=== PATIENT | male | born 1940 | race Caucasian/White ===

== ENCOUNTER 2025-03-12 08:18 | Outpatient (REF) | payer MEDICARE, OTHER, SELFPAY ==
--- NOTE | ~2025-03-12 | XR_ITS ---
EXAMINATION: XR SHOULDER, BILATERAL CLINICAL INFORMATION: M25.511 - Pain in right shoulder COMPARISON: None available. TECHNIQUE: AP and Y views of the bilateral shoulders. FINDINGS: RIGHT SHOULDER: Normal bone mineralization. No fracture, dislocation, or suspicious bone lesion. The glenohumeral demonstrates severe, end-stage arthritis with rerv-[id number] appearance, subchondral sclerosis and cystic changes, and undersurface spurring. The AC joint demonstrates moderate to severe arthrosis with predominant superior surface spurring. There is total loss of the subacromial space, with rjol-[id number] appearance of the humeral head on the acromion, indicating full thickness rotator cuff tearing. Remainder of the soft tissue and bony structures appear normal. LEFT SHOULDER Normal bone mineralization. No fracture, dislocation, or suspicious bone lesion. The glenohumeral demonstrates severe, end-stage arthritis with rqlg-[id number]-jlbd appearance, subchondral sclerosis and cystic changes, and undersurface spurring. The AC joint demonstrates moderate to severe arthrosis with predominant superior surface spurring. There is total loss of the subacromial space, with jikg-sg-tlno appearance of the humeral head on the acromion, indicating full thickness rotator cuff tearing. Partially imaged left-sided dual-lead pacer device. Partially imaged sternal wires. XR/XR Shoulder Johnie min 2V IMPRESSION: 1. Severe bilateral glenohumeral joint osteoarthrosis. [id number]-gh-[id number] appearance bilaterally. 2. Bilateral complete loss of the subacromial space indicating full thickness rotator cuff tearing. Electronically signed by: Mike Prieto MD 03/13/2025 11:22 AM EDT
--- OUTSIDE RECORDS SUMMARY | 2025-03-13 08:37 | XMS_ITS | Clinical Summary ---
Author Organization [address] [place] [address] [place] [phone] Phone Care Team Providers Care Mirror Department Supervisor Name Role Phone Jonathan Carter Primary Care Provider [phone] Allergies No known active allergies Medications amoxicillin [...] mg bid. Coronary artery disease invo lving [place] coronary artery of [place] heart without angina pectoris 06/28/2022 Assessment & [...] they were to faint. Secondary hypercoagulable state ([facility] V24) Assessment & Plan (01/15/2025 10:12 AM EST): Chronic heart failure with p reserved ejection fraction ([facility] V24, [facility] V28) 06/01/2022 Assessment & Plan [...] Description 02/13/2025 7:25 PM EDT Ancillary Procedure [facility] Cardiology [facility] - [address] [place] [address] 01/20/2025 8:20 AM EDT Ancillary Procedure [facility] Cardiology [facility] - [address] [place] [address] 01/15/2025 9:10 AM EST Office Visit [facility] Cardiology [facility] - [address] [place] [address] Stephanie Francois NP Chronic heart failure with preserved ejection fraction (CMS/HCC V24, CMS/HCC V28) (Primary Dx); Coronary artery disease involving mary's ig[place] coronary artery of mary's ig[place] heart without angina pectoris; Hyperlipidemia, unspecified hyperlipidemia [...] Description 12/02/2025 9:30 AM EST Ancillary Procedure [facility] - [facility] [address] [facility] [address] [place] [address] Health Maintenance Due Date Last [...] this topic Medical Devices Implanted Type Area Early Interventionist Device Identifier Shelf Expiration Date Model / Serial / Lot Lexi-Stjazmin 2272 Assurity Mri(Tm) [id number] Implanted: by Jj Dye MD (Quantity not on file) Cardiac Pacemaker Left: Chest [facility] 2271 ASSURITY MRI(TM) / [id number] / Abberica-Stjazmin Assurity Mri [id number] Implanted: (Quantity not on file) Cardiac Pacemaker [facility] ASSURITY MRI 2272 / [id number] / Procedures Procedure Name Priority Date/Time Associated [...] period is included. Date Time Interrogation Session [id number] CV DEVICE CHECK Type Interrogation Session Remote Scheduled CV DEVICE CHECK Implantable Pulse Generator Early Interventionist [place] CV DEVICE CHECK Implantable Pulse Generator Type IPG CV DEVICE CHECK Implantable Pulse Generator Model 2272 Assurity MRI(TM) CV DEVICE CHECK Implantable Pulse Generator Serial Number [id number] CV DEVICE CHECK Implantable Pulse Generator Implant Date 20220901 CV DEVICE CHECK Battery Remaining Percentage 78.00 CV DEVICE CHECK Battery Remaining Longevity 80.0 CV DEVICE CHECK Battery Voltage 3.010 CV D EVICE CHECK Battery ELECTROPHYSIOLOGY TECHNOLOGIST Trigger 2.600 CV DEVICE CHECK Battery Status Middle of Service CV DEVICE CHECK Joey Statistic RA Percent Paced 1.00 CV DEVICE CHECK Joey Statistic RV Percent Paced 92.00 CV DEVICE CHECK Atrial Tachy Statistic AT/AF Powell Percent 99.00 CV DEVICE CHECK Lead Channel [...] * Hemoglobin A1c (01/29/2025 8:07 AM EDT) [facility] Hemoglobin A1C 6.2 <6.5 % LAB CHEMISTRY METHOD 01/29/2025 12:39 PM EDT [facility] Mean Bld Glu Estim. 131 mg/dL LAB CHEMISTRY METHOD 01/29/2025 12:39 PM EDT [facility] Blood Venous blood specimen / Unknown Venipuncture / Unknown 01/29/2025 8:07 AM EDT 01/29/2025 8:07 AM EDT [facility] LAB BLOOD ORDERABLES Final Resul t [facility] [address] [place] [address], * (ABNORMAL) Basic metabolic panel (01/29/2025 8:07 AM EDT) Only the most recent of2 resultswithin the time period is included. [facility] Sodium 145 133 - 145 mmol/L LAB CHEMISTRY METHOD 01/29/2025 11:29 AM [facility] Potassium 4.2 3.5 - 5.5 mmol/L LAB CHEMISTRY METHOD 01/29/2025 11:29 AM [facility] Chloride 109 96 - 110 mmol/L LAB CHEMISTRY METHOD 01/29/2025 11:29 AM [facility] CO2 30 21 - 32 mmol/L LAB CHEMISTRY METHOD 01/29/2025 11:29 AM [facility] Anion Gap 6 3 - 11 LAB CHEMISTRY METHOD 01/29/2025 11:29 AM [facility] Glucose 103(H) 70 - 100 mg/dL LAB CHEMISTRY METHOD 01/29/2025 11:29 AM [facility] BUN 33(H) 5 - 25 mg/dL LAB CHEMISTRY METHOD 01/29/2025 11:29 AM EDT [facility] Creatinine 1.07 0.70 - 1.30 mg/dL LAB CHEMISTRY METHOD 01/29/2025 11:29 AM EDT [facility] eGFR 68 >=60 mL/min/1. 73m2 LAB CHEMISTRY METHOD 01/29/2025 11:29 AM EDT [facility] Comment:Calculation based on the??Chronic Kidney Disease Epidemiology Collaboration (CKD-EPI) equation refit??without adjustment for race. BUN/Creatinine Ratio 30.8 LAB CHEMISTRY METHOD 01/29/2025 11:29 AM EDT [facility] Calcium 9.0 8.5 - 10.5 mg/dL LAB CHEMISTRY METHOD 01/29/2025 11:29 AM EDT [facility] Blood Venous blood specimen / Unknown Venipuncture / Unknown 01/29/2025 8:07 AM EDT 01/29/2025 8:07 AM EDT [facility] LAB BLOOD ORDERABLES Final Resul t [facility] [address] [place] [address], [place] [phone] * (ABNORMAL) Lipid panel with reflex to direct LDL (01/16/2025 2:17 PM EST) Only the most recent of2 resultswithin the time period is included. Cholesterol 130 0 - 200 mg/dL LAB CHEMISTRY METHOD 01/16/2025 7:44 PM EST [facility] Triglycerides 174(H) 0 - 150 mg/dL LAB CHEMISTRY METHOD 01/16/2025 7:44 PM EST [facility] HDL 46 >=40 mg/dL LAB CHEMISTRY METHOD 01/16/2025 7:44 PM EST [facility] LDL Calculated 49 0 - 100 mg/dL LAB CHEMISTRY METHOD 01/16/2025 7:44 PM EST [facility] VLDL Cholesterol Pepe 34.8 mg/dL LAB CHEMISTRY METHOD 01/16/2025 7:44 PM EST [facility] Non HDL Chol. (LDL+VLDL) 84 <145 mg/dL LAB CHEMISTRY METHOD 01/16/2025 7:44 PM EST [facility] Chol/HDL Ratio 2.8 0.0 - 4.4 LAB CHEMISTRY METHOD 01/16/2025 7:44 PM EST [facility] Blood Venous blood specimen / Unknown Venipuncture / Unknown 01/16/2025 2:17 PM EST 01/16/2025 2:17 PM EST Wilver Cortez MD LAB BLOOD ORDERABLES Final Resu lt Performing Organization Address [facility]/ZIP Co de Phone Number [facility] [address] [place] [address], [place] [phone] * Magnesium (01/16/2025 2:17 PM EST) Magnesium 2.2 1.9 - 2.6 mg/dL LAB CHEMISTRY METHOD 01/16/2025 7:16 PM EST [facility] Blood Venous blood specimen / Unknown Venipuncture / Unknown 01/16/2025 2:17 PM EST 01/16/2025 2:17 PM EST Wilver Cortez MD LAB BLOOD ORDERABLES Final Resu lt Performing Organization Address City/[facility]/ZIP Co de Phone Number [facility] [address] [place] [address], [place] [phone] from Last 3 Months Insurance MEDICARE [employer] Care Teams Mirror Department Supervisor Relationship Specialty Start Date End Date Jonathan Carter DO [address] [place] [address] [place] [phone] PCP - General Internal Medicine 04/24/14
--- OUTSIDE RECORDS SUMMARY | 2025-03-13 08:37 | XMS_ITS | Patient Health Record ---
Author Organization [facility] Address [address] [facility] [place] [address] Care Team Providers Care Building And Construction Manager Name Role Phone Raul BROCK, Jonathan Primary Care Provider Karena Lazcano Beatriz Unavailable [phone] Allergies No Known Allergies Reason For Referral [...] skin (L97.511) Active confirmed Problem Atherosclerosis of [place] arteries of the extremities ([id number]) Atherosclerosis of [place] artery of both lower extremities, with unspecified presence of clinical manifestation (I70.203) Active confirmed Plan Of Treatment Pending Test Test Name Order Date X ray : Foot, right 3V 12/18/2022 Insurance Providers Payer Name Payer Address Payer Phone Subscriber Number Group Number Insured Name Patient Relationship to Insured Coverage Start Date Coverage End Date Medicare National Govt Sv[employer] [address] [place] [address] [id number] Mesfin Wright Self - patient is the insured [employer]) [address] [place] [address] [id number] Mesfin Wright Self - patient is the insured Medical (General) History Medical History History ICD Code Cancer covid-19 Heart disease High blood pressure Bone implants/screws Heart valve conditions/replacement Gout Surgical History Surgery Date(Month/Year) Heart Valve replacement cardiac pacemeker knee replacement
== END 2025-03-12 08:19 | disposition home or self-care (01) ==
LOC: HO.HOSX 08:18
PROVIDERS: Visit Provider Orthopaedic Surgery
DX: G56.03 Carpal tunnel syndrome, bilateral upper limbs (principal); M25.511 Pain in right shoulder; M25.512 Pain in left shoulder; R20.0 Anesthesia of skin
CPT/HCPCS: 73030; 99202

== ENCOUNTER 2025-03-12 13:35 | Outpatient (AMB) | payer MEDICARE, OTHER, SELFPAY ==
--- NOTE | 2025-03-12 13:40 | A.OFFVIS_ITS ---
Vital Signs 03/12/25 13:43 Height 6 ft Weight 225 lb BMI 30.5 Intake Visit Reasons: [employer]-B/L Shoulder Pain, Bilateral hand numbness Intake Note: Mesfin is an 84 year old male who presents with complaints of bilateral shoulder pains as well as numbness and tingling in both of his hands. The patient states that he has difficulty sleeping because of his hand numbness and tingling. He has had cortisone injections given into his shoulders which gave him temporary relief. His shoulder pains have gotten worse over the last few years. He has tried stretching exercises which gave him only mild relief. He has tried Tylenol which gives him minimal relief. He is not able to take anti- inflammatory medicines because he is on Eliquis. Allergies No Known Allergies Allergy (Verified 03/12/25 13:43) Medication List - Last Reconciled 03/12/25 by [place] MD amlodipine 5 mg PO DAILY apixaban (Eliquis) 5 mg PO BID bumetanide 1 mg PO DAILY evolocumab (Repatha SureClick) mg subcut gabapentin mg PO metoprolol succinate ER 50 mg PO DAILY omeprazole 20 mg PO DAILY Physical Exam Vital Signs: BMI result Body Mass Index 30.5 Const Other: Well-nourished well-developed very friendly male awake alert and oriented x3 in no acute distress Extrem Other: Bilateral hand examination shows positive Tinel's tests over his carpal tunnels, moderate thenar muscle wasting, decreased sensation to light touch along his median nerve distributions Bilateral shoulder examination shows limited active and passive range of motion, crepitus with range of motion, pain with range of motion, 3/5 strength with supraspinatus testing Results Reviewed Results Reviewed: X-rays of the patient's bilateral shoulder show rotator cuff tear arthropathy with bilateral high-riding humeral head Assessment & Plan Assessment & Plan (1) Bilateral carpal tunnel syndrome: Code(s): G56.03 - Carpal tunnel syndrome, bilateral upper limbs Category: Medical (2) Bilateral hand numbness: Code(s): R20.0 - Anesthesia of skin Plan Mr. Wright presents with bilateral shoulder pains and stiffness due to rotator cuff tear arthropathy. He also has numbness and tingling in both of his hands most likely due to carpal tunnel syndrome. Thus, I will send the patient for nerve conduction studies of his bilateral upper extremities. If he does have evidence of carpal tunnel syndrome I will refer him to our hand service. We also discuss the risks and benefits of reverse total shoulder replacement surgery. He wishes to think things over. He will contact me prior to his nerve conduction studies should his symptoms worsen in any way. Feel free to call me at any time should questions regarding his orthopedic management arise. Thank you very much for asking me to see this very friendly gentleman. I spent 22 minutes in reviewing the patient's records and imaging studies, seeing the patient and documenting in the medical record. Orders: Orders XR Shoulder Johnie min 2V 03/12/25 M25.511 - Pain in right shoulder, M25.512 - Pain in left shoulder NE electromyogram (EMG) Today G56.03 - Carpal tunnel syndrome, bilateral upper limbs NE nerve conduction velocity Today G56.03 - Carpal tunnel syndrome, bilateral upper limbs Coding Level of Care Code New Pt Level 3 (96565) Complex EM visit Add On G2211 Diagnoses Bilateral carpal tunnel syndrome G56.03 Bilateral hand numbness R20.0
[2025-03-12 13:43] VITALS: BMI 30.5
--- OUTSIDE RECORDS SUMMARY | 2025-03-12 15:54 | XMS_ITS | Patient Health Record ---
Author Organization [facility] Address [address] [place] [address] Care Team Providers Care [employer] Name Role Phone Raul BROCK, Jonathan Primary Care Provider Karena Lazcano Beatriz Unavailable [phone] Allergies No Known Allergies Reason For Referral No Information Medications Medication SIG (Take, Route, Frequency, Duration) Notes Start Date End Date Status Cephalexin 500 MG 1 capsule Orally sonja ry 12 hrs for 10 day(s) Active Praluent Active Bumetanide 0.5 MG 1 tablet Orally Once a day for 30 day(s) Active Eliquis 5 MG 1 tablet Orally Twic e a day for 30 day(s) Active Metoprolol Succinate 25 MG 1 capsule Orally Once a day for 30 day(s) Active Aspirin 81 MG 1 tablet Orally Once a day for 30 day(s) Not-Taking Social History Tobacco Use: Social History Observation Description Date Details (start date - stop date) Former Smoker NA - NA Tobacco Use/Smoking Question Answer Notes Are you a: former smoker Additional Findings: Tobacco Non-User Current no n-smoker Alcohol Screen Question Answer Notes Did you have a drink containing alcohol in the p ast year? No Points 0 Interpretation Negative Tobacco use other than smoking: Question Answer Notes Are you an other tobacco user? 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 confirmed Problem Atherosclerosis of [place] arteries of the extremities ([id number]) Atherosclerosis of [place] artery of both lower extremities, with unspecified presence of clinical manifestation (I70.203) Active confirmed Plan Of Treatment Pending Test Test Name Order Date X ray : Foot, right 3V 12/18/2022 Insurance Providers Payer Name Payer Address Payer Phone Subscriber Number Group Number Insured Name Patient Relationship to Insured Coverage Start Date Coverage End Date Medicare [employer] [address] [place] [address] [id number] Mesfin Wright Self - patient is the insured [employer] [address] [place] [address] [id number] Mesfin Wright Self - patient is the insured Medical (General) History Medical History History ICD Code Cancer covid-19 Heart disease High blood pressure Bone implants/screws Heart valve conditions/replacement Gout Surgical History Surgery Date(Month/Year) Heart Valve replacement cardiac pacemeker knee replacement
--- OUTSIDE RECORDS SUMMARY | 2025-03-12 15:54 | XMS_ITS | Clinical Summary ---
Author Organization [address] [place] [address] [place] [id number] Phone Care Team Providers Care Ball Mill Operator Name Role Phone Jonathan Carter Primary Care Provider [phone] Allergies No known active allergies Medications amoxicillin (AMOXIL) 500 mg tablet Take 4 pills one hour prior to procedure, as directed 5 Active gabapentin (NEURONTIN) 300 mg capsule Take 1 Capsule by mouth at bedtime. Active omeprazole (PRILOSEC) 20 mg tablet,delayed release (DR/EC) Take 1 Tablet by mouth daily. Active amLODIPine (NORVASC) 5 mg tablet TAKE 1 TABLET BY MOUTH EVERY DAY 90 tablet 2 5 Active evolocumab (Repatha SureClick) 140 mg/mL pen injector injection INJECT 1 SYRINGE INTO THE SKIN EVERY 14 DAYS. 6 mL 5 Active bumetanide (BUMEX) 1 mg tablet TAKE 1 TABLET BY MOUTH EVERY DAY 90 tablet 1 5 Active apixaban (Eliquis) 5 mg tablet TAKE 1 TABLET BY MOUTH TWICE A DAY 180 tablet 2 5 Active metoprolol succinate (TOPROL-XL) 50 mg 24 hr tablet TAKE 1 TABLET BY MOUTH EVERY DAY 90 tablet 3 5 Active metoprolol succinate (TOPROL-XL) 50 mg 24 hr tablet TAKE 1 TABLET BY MOUTH EVERY DAY 4 025 Discontinued Active Problems Problem Noted Date Diagnosed Date Status post aortic valve replacement 01/14/2025 Assessment & Plan (01/15/2025 10:12 AM EST): The patient's most recent echocardiogram was completed in 05/2024 showing a normally functioning bioprosthetic aortic valve with a mean gradient of 4 mmHg and no insufficiency. He offers no symptoms today to offer concern for worsening valvular dysfunction despite the fact that his valve was replaced in 2009. We will continue to monitor this with serial echocardiograms. Worrisome signs or symptoms for which he should return to care or seek urgent medical attention were reviewed and he verbalizes understanding. He is aware of the need for SBE prophylaxis 30 to 60 minutes prior to any dental procedures or cleanings; amoxicillin orders in place. Cardiac pacemaker in situ 01/14/2025 Assessment & Plan (01/15/2025 10:12 AM EST): Chronic diastolic congestive heart failure (CMS/HCC V24, CMS/HCC V28) 08/09/2023 Complete heart block (CMS/HCC V24, CMS/HCC V28) 08/09/2023 Overview (09/24/2024): Last Assessment & Plan: He is followed remotely every 3 months via our device clinic and annually in office. He is up to date with follow up in device clinic with normal device function. Assessment & Plan (01/15/2025 10:12 AM EST): Now status post pacemaker; normal device function on most recent device check. Continue with in office and remote device checks as per device clinic protocol. ACS (acute coronary syndrome) (CMS/HCC V24, CMS/ HCC V28) 08/06/2023 Chest pain 08/06/2023 Heart block 08/06/2023 Pneumonia 08/06/2023 SOB (shortness of breath) 08/06/2023 Atrial flutter (CMS/HCC V24, CMS/HCC V28) 2022 Overview (09/24/2024): Last Assessment & Plan: Rate controlled with pacemaker. Appropriately anticoagulated with Eliquis 5 mg bid. Coronary artery disease invo lving tangirnaq coronary artery of tangirnaq heart without angina pectoris 06/28/2022 Assessment & Plan (01/15/2025 10:12 AM EST): As above, the patient remains active on a regular basis and offers no symptoms concerning for underlying ischemia. We will not make any changes to his cardioprotective medical therapy; continue metoprolol, and Repatha in addition to amlodipine as an antianginal. He is not on daily aspirin given his concurrent use of Eliquis secondary to his atrial fibrillation. The patient was advised to seek emergent medical attention by calling 911 if they were to develop severe dyspnea, chest pain that did not resolve with rest, or if they were to faint. Secondary hypercoagulable state ([facility] V24) Assessment & Plan (01/15/2025 10:12 AM EST): Chronic heart failure with p reserved ejection fraction ([facility] V24, [facility] V28) 06/01/2022 Assessment & Plan (01/15/2025 10:12 AM EST): The patient remains active on a regular basis no exertional symptoms and no recent weight gain; he states that his chronic peripheral edema is at baseline if not improved from previous. He appears relatively euvolemic on exam aside from this edema and we will continue to wear compression stockings daily. We will not make any changes to his medications today; patient continue with beta-blockade and Bumex without change. We will update blood work; he already has orders in place for a BMP and magnesium level which were not completed when he had his recent lipid panel drawn-lab slips were provided to them today. We discussed risk reduction through lifestyle modifications including healthy diet, routine exercise, and weight management. We reviewed heart failure management including low-sodium diet, symptom surveillance, daily weights, and medication compliance. I've asked the patient to call if they develop worsening symptoms of heart failure such as increased shortness of breath, new or worsening cough, increased swelling in the legs or ankles, or weight gain of more than 2 pounds in one day or 4 pounds in one week. Aortic stenosis 12/07/2020 Overview (09/24/2024): Last Assessment & Plan: By exam his aortic valve is functioning normally. He did have an echocardiogram in May 2022. That time the valve is well-seated and functioning normally with trace aortic regurgitation. Plan for repeat surveillance echo summer 2023. Assessment & Plan (01/15/2025 10:12 AM EST): Atrial fibrillation (CMS/HCC V24, CMS/HCC V28) 0 12/07/2020 Overview (09/24/2024): Last Assessment & Plan: Patient is in atrial fibrillation. At this time he is anticoagulated with Eliquis. Given his weight and his last serum creatinine he is on the correct dose. Assessment & Plan (01/15/2025 10:12 AM EST): Rate appears well-controlled on metoprolol and he remains anticoagulated on Eliquis 5 mg twice daily. We discussed the risks and benefits of continuing with anticoagulation and he wishes to continue with current plan; we had a long discussion regarding this today as he is also inquiring about a possible Watchman but does not have any significant indication for this at this time. He is on the appropriate dose of Eliquis for his age of greater than 80 years, weight of greater than 60 kg, and most recent creatinine of less than 1.5. We are updating a metabolic panel today and we will readdress this should his creatinine result at 1.5 or greater. Edema 12/07/2020 Overview (09/24/2024): Last Assessment & Plan: He has worsening lower extremity edema. We will update echocardiogram. I am going to change his hydrochlorothiazide to furosemide to see if this helps with his edema. We will check a repeat basic metabolic panel and magnesium level in 5 days. Essential hypertension 12/07/2020 Overview (09/24/2024): Last Assessment & Plan: Blood pressure was slightly elevated on arrival to the office today but improved after rest. Continue amlodipine and Metoprolol along with diuretic. Continue to monitor. Assessment & Plan (01/15/2025 10:12 AM EST): Blood pressure is favorable in office today. We will not make any changes to his antihypertensive regimen; continue amlodipine, metoprolol, and bumetanide. We are updating a BMP and mag level; these orders are already in place as above. Hyperlipidemia 12/07/2020 Overview (09/24/2024): Last Assessment & Plan: Last lipid panel from May 2021. Total cholesterol 164, HDL 66, LDL 73. Continue statin therapy. Followed by PCP. Assessment & Plan (01/15/2025 10:12 AM EST): The patient's most recent lipid panel was completed on 01/06/2024 showing an LDL of 50; LDL goal for this patient who has a history of coronary artery disease is less than 70. Continue Repatha. Sick sinus syndrome (CMS/HCC V24, CMS/HCC V28) 0 12/07/2020 Overview (09/24/2024): Last Assessment & Plan: Recent replacement of his battery and the pacemaker is functioning normally.He is pacemaker dependent. Encounters Date Type Department Care Team Description 02/13/2025 7:25 PM EDT Ancillary Procedure [facility] Cardiology [facility] [address] [place] [address] 01/20/2025 8:20 AM EDT Ancillary Procedure [facility] Card[facility] [address] [place] [address] 01/15/2025 9:10 AM EST Office Visit [facility] - [address] [place] [address] Stephanie Francois NP Chronic heart failure with preserved ejection fraction (CMS/HCC V24, CMS/HCC V28) (Primary Dx); Coronary artery disease involving tangirnaq coronary artery of tangirnaq heart without angina pectoris; Hyperlipidemia, unspecified hyperlipidemia type; Essential hypertension; Status post aortic valve replacement; Nonrheumatic aortic valve stenosis; Longstanding persistent atrial fibrillation (CMS/HCC V24, CMS/HCC V28); Secondary hypercoagulable state (CMS/HCC V24); Complete heart block (CMS/HCC V24, CMS/HCC V28); Cardiac pacemaker in situ from Last 3 Months Surgical History Surgery Date Site/Laterality Comments AORTIC VALVE REPLACEMENT PROCEDURE: HISTORICAL AORTIC VALVE REPL; COMMENT: Bioprosthetic arctic valve repair Medical History Medical History Date Comments Essential hypertension DX:Essent ial hypertension Hyperlipidemia DX:Hyperlipidemi a SOB (shortness of breath) DX:SOB (shortness of breath) Hypoxia DX:Hypoxia Elevated LFTs DX:Elevated LFTs Generalized weakness DX:Generali zed weakness Bilateral lower extremity edema DX:Bilateral lower extremity edema Upper GI bleeding DX:Upper GI bl eeding; COMMENT: secondary to duodenal ulcers Acute blood loss anemia DX:Acute blood loss anemia HTN (hypertension) DX:HTN (hyper tension) Family History Medical History Relation Name Comments Heart attack Other Relation Name Status Comments Other Uncle Alive Social History Tobacco Use Types Packs/Day Years Used Date Smoking Tobacco: Former Smokeless Tobacco: Never Alcohol Use Standard Drinks/Week Comments Yes 0 (1 standard drink = 0.6 oz pur e alcohol) Sex and Gender Information Value Date Recorded Sex Assigned at Not on file Legal Sex Male 5:48 AM EST Gender Identity Not on file Sexual Orientation Not on file Obstetrics History Last Filed Vital Signs Vital Sign Reading Time Taken Comments Blood Pressure 121/70 01/15/2025 9:04 AM EST Pulse 61 01/15/2025 9:04 AM EST Temperature - - Respiratory Rate - - Oxygen Saturation 95% 01/15/2025 9:04 AM EST Inhaled Oxygen Concentration - - Weight 99.8 kg (220 lb) 01/15/2025 9:04 AM EST Height 182.9 cm (6') 01/15/2025 9:04 AM EST Body Mass Index 29.84 01/15/2025 9:04 AM EST Plan of Treatment Upcoming Encounters Date Type Department Care Team (Late st Contact Info) Description 12/02/2025 9:30 AM EST Ancillary Procedure [facility] [address] [facility] [address] [place] [address] Health Maintenance Due Date Last Done Comments DTaP,Tdap,and Td Vaccines (1 - Tdap) 1959 Pneumococcal Vaccine: 50+ Years (1 of 2 - PCV) 1959 Zoster Vaccines (1 of 2) 1988 Depression Screening 10/21/2022 Falls Risk Assessment 10/21/2022 Medicare Annual Wellness Visit 10/21/2022 Social Influencers of Health Screening 10/21/2022 COVID-19 Vaccine ( season) 2025 07/22/2024, 08/15/2023, 03/27/2023, Additional history exists Hypertension/CHF/CAD Annual BMP Blood Test 01/29/2026 01/29/2025, 01/16/2025, 08/28/2022, Additional history exists Cholesterol Screening (Lipid Panel) 01/16/2030 01/16/2025, 01/07/2025, 08/28/2022 RSV Immunization Adult Patients Completed 10/30/2023 Influenza Vaccine Completed 08/02/2024, , 08/17/2022 HIB Vaccines Aged Out No longer eligi ble based on patient's age to complete this topic HPV Vaccines Aged Out No longer eligi ble based on patient's age to complete this topic Hepatitis A Vaccines Aged Out No long er eligible based on patient's age to complete this topic Hepatitis B Vaccines Aged Out No long er eligible based on patient's age to complete this topic IPV Vaccines Aged Out No longer eligi ble based on patient's age to complete this topic MMR Vaccines Aged Out No longer eligi ble based on patient's age to complete this topic Meningococcal ACWY Vaccine Aged Out N o longer eligible based on patient's age to complete this topic Meningococcal B Vaccine Aged Out No l onger eligible based on patient's age to complete this topic RSV Immunization Patients Under 20 months Aged Out No longer eligible based on patient's age to complete this topic Varicella Vaccines Aged Out No longer eligible based on patient's age to complete this topic Medical Devices Implanted Type Area Afterschool Device Identifier Shelf Expiration Date Model / Serial / Lot Lexi-Stjazmin 2272 Assurity Mri(Tm) [id number] Implanted: by Jj Dye MD (Quantity not on file) Cardiac Pacemaker Left: Chest [facility] 2271 ASSURITY MRI(TM) / [id number] / Abberica-Stjazmin Assurity Mri [id number] Implanted: (Quantity not on file) Cardiac Pacemaker [facility] ASS[employer] MRI 2272 / [id number] / Procedures Procedure Name Priority Date/Time Associated Diagnosis Comments CARDIAC DEVICE CHECK- REMOTE- MURJ Routine 02/13/2025 7:20 PM EDT HEMOGLOBIN A1C Routine 01/29/2025 8:07 AM EDT HTN (hypertension) IGT (impaired glucose tolerance) BASIC METABOLIC PANEL Routine 01/29/2025 8:07 AM EDT HTN (hypertension) IGT (impaired glucose tolerance) CARDIAC DEVICE CHECK- REMOTE- MURJ Routine 01/20/2025 8:17 AM EDT LIPID PANEL WITH REFLEX TO DIRECT LDL Routine 01/16/2025 2:17 PM EST Hyperlipidemia, unspecified hyperlipidemia type MAGNESIUM Routine 01/16/2025 2:17 PM EST Atrial fibrillation, unspecified type (CMS/HCC V24, CMS/HCC V28) BASIC METABOLIC PANEL Routine 01/16/2025 2:17 PM EST Atrial fibrillation, unspecified type (CMS/HCC V24, CMS/HCC V28) LIPID PANEL WITH REFLEX TO DIRECT LDL Routine 01/07/2025 8:31 AM EST Hyperlipidemia, unspecified hyperlipidemia type from Last 3 Months Results * Cardiac device check - Remote- MURJ (02/13/2025 7:20 PM EDT) Only the most recent of2 resultswithin the time period is included. Date Time Interrogation Session [id number] CV DEVICE CHECK Type Interrogation Session Remote Scheduled CV DEVICE CHECK Implantable Pulse Generator [employer] CV DEVICE CHECK Implantable Pulse Generator Type IPG CV DEVICE CHECK Implantable Pulse Generator Model 2272 Assurity MRI(TM) CV DEVICE CHECK Implantable Pulse Generator Serial Number [id number] CV DEVICE CHECK Implantable Pulse Generator Implant Date [id number] CV DEVICE CHECK Battery Remaining Percentage 78.00 CV DEVICE CHECK Battery Remaining Longevity 80.0 CV DEVICE CHECK Battery Voltage 3.010 CV D EVICE CHECK Battery FOOD SERVICE AIDE Trigger 2.600 CV DEVICE CHECK Battery Status Middle of Service CV DEVICE CHECK Joey Statistic RA Percent Paced 1.00 CV DEVICE CHECK Joey Statistic RV Percent Paced 92.00 CV DEVICE CHECK Atrial Tachy Statistic AT/AF [place] Percent 99.00 CV DEVICE CHECK Lead Channel Sensing Intrinsic Amplitude 0.500 CV DEVICE CHECK Lead Channel Setting Sensing Sensitivity 0.50 CV DEVICE CHECK Lead Channel Impedance Value 410 CV DEVICE CHECK Lead Channel Setting Pacing Amplitude 2.500 CV DEVICE CHECK Lead Channel Setting Pacing Pulse Width 1.0 CV DEVICE CHECK Lead Channel Sensing Intrinsic Amplitude 12.000 CV DEVICE CHECK Lead Channel Setting Sensing Sensitivity 2.00 CV DEVICE CHECK Lead Channel Impedance Value 380 CV DEVICE CHECK Lead Channel Pacing Threshold Amplitude 1.250 CV DEVICE CHECK Lead Channel Pacing Threshold Pulse Width 0.5 CV DEVICE CHECK Lead Channel RV Pacing Threshold Date 2024-07-24 CV DEVICE CHECK Lead Channel Setting Pacing Amplitude 1.500 CV DEVICE CHECK Lead Channel Setting Pacing Pulse Width 0.5 CV DEVICE CHECK Joey Setting Mode (NBG Code) DDD CV DEVICE CHECK Joey Setting Lower Rate Limit 60 CV DEVICE CHECK Joey Setting AT Mode Switch Rate 180 CV DEVICE CHECK Joey Setting Maximum Tracking Rate 130 CV DEVICE CHECK Joey Setting Maximum Sensor Rate 130 CV DEVICE CHECK Joey Setting PAV Delay 200 CV DEVICE CHECK Joey Setting HUMPHREY Delay 180 CV DEVICE CHECK Date of Service 2024-08-05 CV DEVICE CHECK Anatomical Region Laterality Modality Device Interroga tion 07/24/2024 2:00 AM EDT Impressions 08/05/2024 12:46 PM EDT Normal Remote: With Events * Normal Device Function * Events or Alerts: Persistent AF / Meds include / Eliquis / Rate Controlled * Battery: Battery is at 78%, 6.67 yrs * Sensing, impedance and thresholds reviewed * Programmed parameters reviewed * Presenting rhythm reviewed * Heart Rate Histograms reviewed Narrative Procedure Note Jj Dye MD - 02/13/2025 IMPRESSION: Normal Remote: With Events * Normal Device Function * Events or Alerts: Persistent AF / Meds include / Eliquis / RateControlled * Battery: Battery is at 78%, 6.67 yrs * Sensing, impedance and thresholds reviewed * Programmed parameters reviewed * Presenting rhythm reviewed * Heart Rate Histograms reviewed Jj Dye MD CV IMPLANTABLE CARDIAC DEVICE PROCEDURES Final Result * Hemoglobin A1c (01/29/2025 8:07 AM EDT) [facility] Hemoglobin A1C 6.2 <6.5 % LAB CHEMISTRY METHOD 01/29/2025 12:39 PM EDT [facility] Mean Bld Glu Estim. 131 mg/dL LAB CHEMISTRY METHOD 01/29/2025 12:39 PM EDT [facility] Blood Venous blood specimen / Unknown Venipuncture / Unknown 01/29/2025 8:07 AM EDT 01/29/2025 8:07 AM EDT [facility] LAB BLOOD ORDERABLES Final Resul t [facility] [address] [place] [address], * (ABNORMAL) Basic metabolic panel (01/29/2025 8:07 AM EDT) Only the most recent of2 resultswithin the time period is included. [facility] Sodium 145 133 - 145 mmol/L LAB CHEMISTRY METHOD 01/29/2025 11:29 AM [facility] Potassium 4.2 3.5 - 5.5 mmol/L LAB CHEMISTRY METHOD 01/29/2025 11:29 AM [facility] Chloride 109 96 - 110 mmol/L LAB CHEMISTRY METHOD 01/29/2025 11:29 AM [facility] CO2 30 21 - 32 mmol/L LAB CHEMISTRY METHOD 01/29/2025 11:29 AM [facility] Anion Gap 6 3 - 11 LAB CHEMISTRY METHOD 01/29/2025 11:29 AM [facility] Glucose 103(H) 70 - 100 mg/dL LAB CHEMISTRY METHOD 01/29/2025 11:29 AM [facility] BUN 33(H) 5 - 25 mg/dL LAB CHEMISTRY METHOD 01/29/2025 11:29 AM EDT [facility] Creatinine 1.07 0.70 - 1.30 mg/dL LAB CHEMISTRY METHOD 01/29/2025 11:29 AM EDT [facility] eGFR 68 >=60 mL/min/1. 73m2 LAB CHEMISTRY METHOD 01/29/2025 11:29 AM EDT [facility] Comment:Calculation based on the??Chronic Kidney Disease Epidemiology Collaboration (CKD-EPI) equation refit??without adjustment for race. BUN/Creatinine Ratio 30.8 LAB CHEMISTRY METHOD 01/29/2025 11:29 AM EDT [facility] Calcium 9.0 8.5 - 10.5 mg/dL LAB CHEMISTRY METHOD 01/29/2025 11:29 AM EDT [facility] Blood Venous blood specimen / Unknown Venipuncture / Unknown 01/29/2025 8:07 AM EDT 01/29/2025 8:07 AM EDT [facility] LAB BLOOD ORDERABLES Final Resul t [facility] [address] [place] [address], [place] [phone] * (ABNORMAL) Lipid panel with reflex to direct LDL (01/16/2025 2:17 PM EST) Only the most recent of2 resultswithin the time period is included. Cholesterol 130 0 - 200 mg/dL LAB CHEMISTRY METHOD 01/16/2025 7:44 PM EST [facility] Triglycerides 174(H) 0 - 150 mg/dL LAB CHEMISTRY METHOD 01/16/2025 7:44 PM EST [facility] HDL 46 >=40 mg/dL LAB CHEMISTRY METHOD 01/16/2025 7:44 PM EST [facility] LDL Calculated 49 0 - 100 mg/dL LAB CHEMISTRY METHOD 01/16/2025 7:44 PM EST [facility] VLDL Cholesterol Pepe 34.8 mg/dL LAB CHEMISTRY METHOD 01/16/2025 7:44 PM EST [facility] Non HDL Chol. (LDL+VLDL) 84 <145 mg/dL LAB CHEMISTRY METHOD 01/16/2025 7:44 PM EST [facility] Chol/HDL Ratio 2.8 0.0 - 4.4 LAB CHEMISTRY METHOD 01/16/2025 7:44 PM EST [facility] Blood Venous blood specimen / Unknown Venipuncture / Unknown 01/16/2025 2:17 PM EST 01/16/2025 2:17 PM EST Wilver Cortez MD LAB BLOOD ORDERABLES Final Resu lt Performing Organization Address [facility]/ZIP Co de Phone Number [facility] [address] [place] [address], [place] [phone] * Magnesium (01/16/2025 2:17 PM EST) Magnesium 2.2 1.9 - 2.6 mg/dL LAB CHEMISTRY METHOD 01/16/2025 7:16 PM EST [facility] Blood Venous blood specimen / Unknown Venipuncture / Unknown 01/16/2025 2:17 PM EST 01/16/2025 2:17 PM EST Wilver Cortez MD LAB BLOOD ORDERABLES Final Resu lt Performing Organization Address City/[facility]/ZIP Co de Phone Number [facility] [address] [place] [address], [place] [phone] from Last 3 Months Insurance MEDICARE [employer] Care Teams Ball Mill Operator Relationship Specialty Start Date End Date Jonathan Carter DO [address] [place] [address] [place] [phone] PCP - General Internal Medicine 04/24/14
== END 2025-03-12 14:02 | disposition home or self-care (01) ==
LOC: HO.HOS 13:35
PROVIDERS: PCP Internal Medicine; Visit Provider Orthopaedic Surgery
DX: G56.03 Carpal tunnel syndrome, bilateral upper limbs (principal); R20.0 Anesthesia of skin
CPT/HCPCS: 99203; G2211

== ENCOUNTER → 2025-03-12 13:36 | Outpatient (BNV) | payer MEDICARE, OTHER, SELFPAY | PROVIDERS: Visit Provider Radiology Diagnostic Radiology | DX: M19.011 Primary osteoarthritis, right shoulder (principal); M19.012 Primary osteoarthritis, left shoulder | CPT/HCPCS: 73030 ==

== ENCOUNTER 2025-05-19 08:22 | Outpatient (REF) | payer MEDICARE, OTHER, SELFPAY ==
--- OUTSIDE RECORDS SUMMARY | 2025-05-19 08:25 | XMS_ITS | Clinical Summary ---
Author Organization [address] [place] [address] [place] [phone] Phone Care Team Providers Care Laborer Tin Can Name Role Phone Jonathan Carter Primary Care Provider [phone] Allergies No known active allergies Medications amoxicillin (AMOXIL) 500 mg tablet Take 4 pills one hour prior to procedure, as directed 04/30/2015 Active gabapentin (NEURONTIN) 300 mg capsule Take 1 Capsule by mouth at bedtime. Active omeprazole (PRILOSEC) 20 mg tablet,delayed release (DR/EC) Take 1 Tablet by mouth daily. Active amLODIPine (NORVASC) 5 mg tablet TAKE 1 TABLET BY MOUTH EVERY DAY 90 tablet 2 11/13/2024 Active bumetanide (BUMEX) 1 mg tablet TAKE 1 TABLET BY MOUTH EVERY DAY 90 tablet 1 01/07/2025 Active apixaban (Eliquis) 5 mg tablet TAKE 1 TABLET BY MOUTH TWICE A DAY 180 tablet 2 01/26/2025 Active metoprolol succinate (TOPROL-XL) 50 mg 24 hr tablet TAKE 1 TABLET BY MOUTH EVERY DAY 90 tablet 3 02/25/2025 Active evolocumab (Repatha SureClick) 140 mg/mL pen injector injection INJECT 1 SYRINGE INTO THE SKIN EVERY 14 DAYS. 6 mL 2 03/17/2025 Active Active Problems Problem Noted Date Diagnosed Date [...] AM EST): Chronic diastolic congestive heart failure (CMS/[facility] V24, CMS/HCC V28) 08/09/2023 Complete heart block [...] mg bid. Coronary artery disease invo lving [place] coronary artery of [place] heart without angina pectoris 06/28/2022 Assessment & [...] they were to faint. Secondary hypercoagulable state ([facility] V24) Assessment & Plan (01/15/2025 10:12 AM EST): Chronic heart failure with p reserved ejection fraction ([facility] V24, [facility] V28) 06/01/2022 Assessment & Plan (01/15/2025 10:12 [...] Encounters Date Type Department Care Team Description 05/04/2025 8:30 AM EDT Ancillary Procedure [facility] Cardiology [facility] - [address] [place] [address] Encounter for adjustment or management of cardiac device 04/28/2025 11:20 AM EDT Ancillary Procedure [facility] Cardiology [facility] - [address] [place] [address] 04/28/2025 Telephone [facility] Cardiology [facility] - [address] [place] [address] Litzy Dwyer NP 03/19/2025 Telephone [facility] Cardiology [facility] - [address] [place] [address] Wilver Cortez MD Med Refill; Prior Auth (Repatha SureClick 140MG/ML auto-injectors) from Last 3 Months Surgical History Surgery [...] Description 12/02/2025 9:30 AM EST Ancillary Procedure [facility] - [facility] [address] [facility] [address] [place] [address] Health Maintenance Due Date Last Done Comments DTaP,Tdap,and Td Vaccines (1 - Tdap) 1959 Pneumococcal Vaccine: 50+ Years (1 of 2 - PCV) 1959 Zoster Vaccines (1 of 2) 1988 Depression Screening 10/21/2022 Falls Risk Assessment 10/21/2022 Medicare Annual Wellness Visit 10/21/2022 Social Influencers of Health Screening 10/21/2022 COVID-19 Vaccine ( season) 2025 07/22/2024, 08/15/2023, 03/27/2023, Additional history exists Influenza Vaccine (#1) 2025 , 01/09/2024, 08/17/2022 Hypertension/CHF/CAD Annual BMP Blood Test 01/29/2026 01/29/2025, 01/16/2025, 08/28/2022, Additional history exists Cholesterol Screening (Lipid Panel) 01/16/2030 01/16/2025, 01/07/2025, 08/28/2022 RSV Immunization Adult Patients Completed 10/30/2023 HIB Vaccines Aged Out No longer eligi [...] this topic Medical Devices Implanted Type Area Awnings Mechanic Device Identifier Shelf Expiration Date Model / Serial / Lot Dianerica-Stju 227 Assurity Mri(Tm) [id number] Implanted: by Jj Dye MD (Quantity not on file) Cardiac Pacemaker Left: Chest [facility] 2272 ASSURITY MRI(TM) / [id number] / Abbt-Stju Assurity Mri [id number] Implanted: (Quantity not on file) Cardiac Pacemaker [facility] ASSURITY MRI 2272 / [id number] / Procedures Procedure Name Priority Date/Time Associated Diagnosis Comments CARDIAC DEVICE CHECK- IN CLINIC- MURJ Routine 05/04/2025 9:28 AM EDT Encounter for adjustment or management of cardiac device CARDIAC DEVICE CHECK- REMOTE- MURJ Routine 04/28/2025 11:19 AM EDT BASIC METABOLIC PANEL Routine 01/29/2025 8:07 AM EDT HTN (hypertension) IGT (impaired glucose tolerance) LIPID PANEL WITH REFLEX TO DIRECT LDL Routine 01/16/2025 2:17 PM EST Hyperlipidemia, unspecified hyperlipidemia type from Last 3 Months or Most Recently Relevant to Health Maintenance Results * CARDIAC DEVICE CHECK- IN CLINIC- MURJ (05/04/2025 9:28 AM EDT) Date Time Interrogation Session [id number] CV DEVICE CHECK Implantable Pulse Generator Awnings Mechanic [place] CV DEVICE CHECK Implantable Pulse Generator Type IPG CV DEVICE CHECK Implantable Pulse Generator Model Assurity MRI 2272 CV DEVICE CHECK Implantable Pulse Generator Serial Number [id number] CV DEVICE CHECK Implantable Pulse Generator Implant Date 20220901 CV DEVICE CHECK Battery Voltage 3.010 CV D EVICE CHECK Battery Status Middle of Service CV DEVICE CHECK Joey Statistic RA Percent Paced 17.00 CV DEVICE CHECK Joey Statistic RV Percent Paced 99.03 CV DEVICE CHECK Lead Channel Sensing Intrinsic Amplitude 1.000 CV DEVICE CHECK Lead Channel Impedance Value 375 CV DEVICE CHECK Lead Channel Pacing Threshold Pulse Width 1.0 CV DEVICE CHECK Lead Channel RA Pacing Threshold Date 2025-05-04 CV DEVICE CHECK Lead Channel Setting Pacing Amplitude 2.500 CV DEVICE CHECK Lead Channel Setting Pacing Pulse Width 1.0 CV DEVICE CHECK Lead Channel Sensing Intrinsic Amplitude 12.000 CV DEVICE CHECK Lead Channel Setting Sensing Sensitivity 2.00 CV DEVICE CHECK Lead Channel Impedance Value 375 CV DEVICE CHECK Lead Channel Pacing Threshold Amplitude 1.130 CV DEVICE CHECK Lead Channel Pacing Threshold Pulse Width 0.5 CV DEVICE CHECK Lead Channel RV Pacing Threshold Date 2025-05-04 CV DEVICE CHECK Lead Channel Setting Pacing Amplitude 1.380 CV DEVICE CHECK Lead Channel Setting Pacing [...] 180 CV DEVICE CHECK Date of Service 2025-10-17 CV DEVICE CHECK Anatomical Region Laterality Modality Device Interroga tion 05/04/2025 Impressions 05/11/2025 7:37 AM EDT Programming Evaluation Performed * Patient brought into device clinic today to change atrial sensitivity to AUTO to ensure appropriate AF burden. Narrative Procedure Note Jj Dye MD - 05/11/2025 IMPRESSION: Programming Evaluation Performed * Patient brought into device clinic today to change atrial sensitivityto AUTO to ensure appropriate AF burden. us Order Referral Cardiovascular CV IMPLANTABLE CAR DIAC DEVICE PROCEDURES Final Result * Cardiac device check - Remote- MURJ (04/28/2025 11:19 AM EDT) Date Time Interrogation Session [id number] CV DEVICE CHECK Type Interrogation Session Remote Scheduled CV DEVICE CHECK Implantable Pulse Generator Awnings Mechanic [place] CV DEVICE CHECK Implantable Pulse Generator Type IPG CV DEVICE CHECK Implantable Pulse Generator Model 2272 Assurity MRI(TM) CV DEVICE CHECK Implantable Pulse Generator Serial Number [id number] CV DEVICE CHECK Implantable Pulse Generator Implant Date 20220901 CV DEVICE CHECK Battery Remaining Percentage 70.00 CV DEVICE CHECK Battery Remaining Longevity 65.0 CV DEVICE CHECK Battery Voltage 3.010 CV D EVICE CHECK Battery GYMNASTIC COACH Trigger 2.600 CV DEVICE CHECK Battery Status Middle of Service CV DEVICE CHECK Joey Statistic RA Percent Paced 14.00 CV DEVICE CHECK Joey Statistic RV Percent Paced 92.00 CV DEVICE CHECK Atrial Tachy Statistic AT/AF Curlew Percent 27.00 CV DEVICE CHECK Lead Channel Sensing Intrinsic Amplitude 0.500 CV DEVICE CHECK Lead Channel Setting Sensing Sensitivity 0.50 CV DEVICE CHECK Lead Channel Impedance Value 350 CV DEVICE CHECK Lead Channel Setting Pacing Amplitude 2.500 CV DEVICE CHECK Lead Channel Setting Pacing Pulse Width 1.0 CV DEVICE CHECK Lead Channel Sensing Intrinsic Amplitude 12.000 CV DEVICE CHECK Lead Channel Setting Sensing Sensitivity 2.00 CV DEVICE CHECK Lead Channel Impedance Value 350 CV DEVICE CHECK Lead Channel Pacing Threshold Amplitude 1.500 CV DEVICE CHECK Lead Channel Pacing Threshold Pulse Width 0.5 CV DEVICE CHECK Lead Channel RV Pacing Threshold Date 2025-04-23 CV DEVICE CHECK Lead Channel Setting Pacing Amplitude 1.750 CV DEVICE CHECK Lead Channel Setting Pacing Pulse Width 0.5 CV DEVICE CHECK Joey Setting Mode (NBG Code) DDD CV DEVICE CHECK Joey Setting Lower Rate Limit 60 CV DEVICE CHECK Joey Setting AT Mode Switch Rate 180 CV DEVICE CHECK Joey Setting Maximum Tracking Rate 130 CV DEVICE CHECK Joey Setting Maximum Sensor Rate 130 CV DEVICE CHECK Ojey Setting PAV Delay 200 CV DEVICE CHECK Joey Setting HUMPHREY Delay 180 CV DEVICE CHECK Date of Service 2025-05-05 CV DEVICE CHECK Anatomical Region Laterality Modality Device Interroga tion 04/23/2025 3:56 AM EDT Impressions 04/28/2025 11:18 AM EDT Normal Remote: With Events * Not appropriaely mode switching (See presenting) Undersensing p-waves * Events or Alerts: AF / Prev Persistent/ Meds include Eliquis * Battery: Battery is at 70%, 5.42 yrs * Sensing, impedance and thresholds reviewed * Programmed parameters reviewed * Presenting rhythm reviewed * Heart Rate Histograms reviewed Narrative Procedure Note Litzy Dwyer NP - 04/28/2025 IMPRESSION: Normal Remote: With Events * Not appropriaely mode switching (See presenting) Undersensing p-waves * Events or Alerts: AF / Prev Persistent/ Meds include Eliquis * Battery: Battery is at 70%, 5.42 yrs * Sensing, impedance and thresholds reviewed * Programmed parameters reviewed * Presenting rhythm reviewed * Heart Rate Histograms reviewed Result [facility] Litzy Dwyer NP CV IMPLANTABLE CARDIAC DEVIC E PROCEDURES Final Result * (ABNORMAL) Basic metabolic panel (01/29/2025 8:07 AM EDT) Sodium 145 133 - 145 mmol/L LAB CHEMISTRY METHOD 01/29/2025 11:29 AM EDT [facility] Potassium 4.2 3.5 - 5.5 mmol/L LAB CHEMISTRY METHOD 01/29/2025 11:29 AM EDT [facility] Chloride 109 96 - 110 mmol/L LAB CHEMISTRY METHOD 01/29/2025 11:29 AM [facility] CO2 30 21 - 32 mmol/L LAB CHEMISTRY METHOD 01/29/2025 11:29 AM T [facility] Anion Gap 6 3 - 11 LAB CHEMISTRY METHOD 01/29/2025 11:29 AM [facility] Glucose 103(H) 70 - 100 mg/dL LAB CHEMISTRY METHOD 01/29/2025 11:29 AM [facility] BUN 33(H) 5 - 25 mg/dL LAB CHEMISTRY METHOD 01/29/2025 11:29 AM [facility] Creatinine 1.07 0.70 - 1.30 mg/dL LAB CHEMISTRY METHOD 01/29/2025 11:29 AM [facility] eGFR 68 >=60 mL/min/1. 73m2 LAB CHEMISTRY METHOD 01/29/2025 11:29 AM [facility] Comment:Calculation based on the Chronic Kidney Disease Epidemiology Collaboration (CKD-EPI) equation refit without adjustment for race. BUN/Creatinine Ratio 30.8 LAB CHEMISTRY METHOD 01/29/2025 11:29 AM [facility] Calcium 9.0 8.5 - 10.5 mg/dL LAB CHEMISTRY METHOD 01/29/2025 11:29 AM [facility] Blood Venous blood specimen / Unknown Venipuncture / Unknown 01/29/2025 8:07 AM EDT 01/29/2025 8:07 AM EDT [facility] LAB BLOOD ORDERABLES Final Resul t [facility] [address] [place] [address], * (ABNORMAL) Lipid panel with reflex to direct LDL (01/16/2025 2:17 PM EST) Cholesterol 130 0 - 200 mg/dL LAB CHEMISTRY METHOD 01/16/2025 7:44 PM EST [facility] Triglycerides 174(H) 0 - 150 mg/dL LAB CHEMISTRY METHOD 01/16/2025 7:44 PM EST [facility] HDL 46 >=40 mg/dL LAB CHEMISTRY METHOD 01/16/2025 7:[address] [facility] LDL Calculated 49 0 - 100 mg/dL LAB CHEMISTRY METHOD 01/16/2025 7:[address] [facility] VLDL Cholesterol Pepe 34.8 mg/dL LAB CHEMISTRY METHOD 01/16/2025 7:[address] [facility] Non HDL Chol. (LDL+VLDL) 84 <145 mg/dL LAB CHEMISTRY METHOD 01/16/2025 7:[address] [facility] Chol/HDL Ratio 2.8 0.0 - 4.4 LAB CHEMISTRY METHOD 01/16/2025 7:[address] [facility] Blood Venous blood specimen / Unknown Venipuncture / Unknown 01/16/2025 2:17 PM EST 01/16/2025 2:17 PM EST us Wilver Cortez MD LAB BLOOD ORDERABLES Final Resu lt [facility] [address] [place] [address], from Last 3 Months or Most Recently Relevant to Health Maintenance Insurance MEDICARE [facility] Care Teams Laborer Tin Can Relationship Specialty Start Date End Date Jonathan Carter DO [address] [place] [phone] PCP - General Internal Medicine 04/24/14
--- OUTSIDE RECORDS SUMMARY | 2025-05-19 08:25 | XMS_ITS | Patient Health Record ---
Author Organization [facility] Address [address] [facility] [place] [address] Care Team Providers Care Development And Planning Engineer Name Role Phone Raul BROCK, Jonathan Primary Care Provider Beatriz Esqueda Unavailable [phone] Allergies No Known Allergies Reason For Referral No Information Medications Medication SIG (Take, Route, Frequency, Duration) Notes Start Date End Date Status Cephalexin 500 MG 1 capsule Orally sonja ry 12 hrs; Duration: 10 day(s) Active Praluent Active Bumetanide 0.5 MG 1 tablet Orally Once a day; Duration: 30 day(s) Active Eliquis 5 MG 1 tablet Orally Twic e a day; Duration: 30 day(s) Active Metoprolol Succinate 25 MG 1 capsule Orally Once a day; Duration: 30 day(s) Active Aspirin 81 MG 1 tablet Orally Once a day; Duration: 30 day(s) Not-Henrry ing Social History Tobacco Use: Social History Observation [...] breakdown of skin (L97.511) Active confirmed Problem Bilateral atherosclerosis of arteries of lower limbs (disorder) ([id number] ) Atherosclerosis of [place] artery of both lower extremities, with unspecified presence of clinical manifestation (I70.203) Active confirmed Plan Of Treatment Pending Test Test Name Order Date X ray : Foot, right 3V 12/18/2022 Insurance Providers Payer Name Payer Address Payer Phone Subscriber Number Group Number Insured Name Patient Relationship to Insured Coverage Start Date Coverage End Date Medicare National Govt Svcs Inc [address] [place] [address] [id number] Mesfin Wright Self - patient is the insured [employer] [address] [place] [address] [id number] Mesfin Wright Self - patient is the insured Medical (General) History Medical History History ICD Code Cancer covid-19 Heart disease High blood pressure Bone implants/screws Heart valve conditions/replacement Gout Surgical History Surgery Date(Month/Year) Heart Valve replacement cardiac pacemeker knee replacement
--- NOTE | 2025-05-19 08:27 | EMG_ITS ---
Bilateral median and ulnar motor and sensory studies were performed. Bilateral radial sensory studies were performed and paraspinal muscles were tested with a needle. IMPRESSION: 1. 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 2. Mild bilateral ulnar neuropathy across cubital tunnel. Please see the attached neurophysiology data M MD VIRI Jamil/DAVID / [id number] MTDCrystal
== END 2025-05-19 08:23 | disposition home or self-care (01) ==
LOC: HO.NEURO 08:22
PROVIDERS: PCP Internal Medicine; Visit Provider Orthopaedic Surgery
DX: G56.03 Carpal tunnel syndrome, bilateral upper limbs (principal)
CPT/HCPCS: 95886; 95911

== ENCOUNTER → 2025-05-19 08:27 | Outpatient (BNV) | payer MEDICARE, OTHER, SELFPAY | PROVIDERS: PCP Internal Medicine; Visit Provider Psychiatry & Neurology Neurology | DX: G56.03 Carpal tunnel syndrome, bilateral upper limbs (principal); G62.89 Other specified polyneuropathies | CPT/HCPCS: 95886; 95911 ==

== ENCOUNTER 2025-06-03 14:02 | Outpatient (AMB) | payer MEDICARE, OTHER, SELFPAY ==
[2025-06-03 14:38] VITALS: BMI 29.8
--- NOTE | 2025-06-03 14:38 | MHC.OFFVIS ---
Vital Signs 06/03/25 14:38 Height 6 ft Weight 220 lb BMI 29.8 Intake Visit Reasons: New prob-B/L hand CTS Intake Note: Mesfin 84 yr old right hand dominant male presents today for a new problem visit for his CTS in bilateral hands. States his right is worse. States he is experiencing numbness and tingling, soreness at times. Mainly at night time and in the mornings. States he has on and off tingling through out the day. Patient states he has not tried braces, injections or therapy. IMPRESSION: 1. 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 2. Mild bilateral ulnar neuropathy across cubital tunnel. Allergies No Known Allergies Allergy (Verified 06/03/25 14:43) HPI HPI New prob-B/L hand CTS: Details: Mesfin is an 84 year old right hand dominant man who presents for a NCS review of his bilateral hand numbness. He complains of numbness primarily in the right middle & ring fingers, with less numbness in the right index & middle fingers. Symptoms are relatively constant to the tip of these fingers, but overall numbness is worse at night. He is not particularly bothered by his left hand, or numbness in his small fingers at this time. He denies any prior treatment options. He denies any locking or catching. He has a Hx of heart surgery & has a pacemaker. He is on Eliquis. [facility] Medical History (Updated 06/03/25 @ 14:54 by Hugh Oakley) Hx of cardiac pacemaker Surgical History (Updated 06/03/25 @ 14:44 by RIVERA Monaco) Hx of heart surgery Hx of total knee replacement Social History (Updated 06/03/25 @ 14:44 by RIVERA Monaco) Current occupational status: disabled Current occupation: rt hand Review of Systems Const All systems reviewed & are unremarkable except as noted in HPI and below Physical Exam Vital Signs: BMI result Body Mass Index 29.8 Const General: cooperative, healthy appearing and no acute distress Orientation/consciousness: patient oriented x3 HEENT Head: Yes normocephalic and Yes atraumatic Eyes EOM: EOMs intact bilaterally Resp Effort & Inspection: normal respiratory effort and able to speak in complete sentences Cardio Jugular venous distension: no JVD Skin General skin exam: turgor normal Rashes: no rashes Neuro General: patient oriented x3 Extrem Other: Evaluation of Right Upper Extremity: The patient is alert, oriented, and in no acute distress Neuro: Decreased subjective sensation in the right middle & ring fingers. Normal sensation to all other fingers in his right hand No thenar or intrinsic wasting Good APB muscle belly firing and good finger cross Vascular: Cap refill brisk ROM: He can make a fist and extend all his digits No locking or catching Skin: No lacerations or abrasions. General: No Ecchymosis. No Erythema or evidence of infection. Radiographs: IMPRESSION: 1. 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 2. Mild bilateral ulnar neuropathy across cubital tunnel. 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 Right carpal tunnel syndrome, mild-moderate Symptoms intermittent, but daily, worse at night With decreased subjective sensation in the middle & ring fingers in clinic This is his chief complaint today 2. Left carpal tunnel syndrome, mild Symptoms intermittent, but daily, not as bothersome as his right hand I educated him about this condition I discussed operative and non-operative treatment options The patient would like to proceed with surgery, beginning with the right side We can discuss treatment for his left side when he has recovered from surgery The risks and benefits of operative treatment were discussed with the patient and the patient wishes to proceed with surgery. These risks include, but are not limited to risk of damage to blood vessels, nerves, tendons, infection, recurrence, incomplete relief of preoperative symptoms, persistent pain, possible need for further surgery and the risks associated with regional blocks and anesthesia. The plan is to take the patient to the operating room sometime in the next few weeks for the following procedures: 1. Right carpal tunnel release, under local All of the preoperative paperwork including the consent was reviewed today. All the patient's questions were answered. The patient understands that they will be contacted by our patient scheduler soon to schedule this procedure He denies Diabetes, asthma, heart, lung, kidney issues He is on Eliquis with a Hx of heart surgery & a pacemaker 3. Right cubital tunnel syndrome, mild Symptoms only occasional 4. Left cubital tunnel syndrome, mild Symptoms only occasional I educated him about this condition We will manage these conservatively for now. He also has a pacemaker in his on Eliquis Scribed for Jolanta Restrepo MD by Hugh Oakley, biomedical scientist, on 06/03/25 at 2:55 PM, EST. 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
--- OUTSIDE RECORDS SUMMARY | 2025-06-03 14:46 | XMS_ITS | Clinical Summary ---
Author Organization [address] [place] [address] [place] [phone] Phone Care Team Providers Care Quality Control Director Name Role Phone Jonathan Carter Primary Care Provider [phone] Allergies No known active allergies Medications amoxicillin [...] AM EST): Chronic diastolic congestive heart failure (CMS/[facility] V24, CMS/HCC V28) 08/09/2023 Complete heart block [...] mg bid. Coronary artery disease invo lving [place] coronary artery of [place] heart without angina pectoris 06/28/2022 Assessment & [...] they were to faint. Secondary hypercoagulable state ([facility] V24) Assessment & Plan (01/15/2025 10:12 AM EST): Chronic heart failure with p reserved ejection fraction ([facility] V24, [facility] V28) 06/01/2022 Assessment & Plan (01/15/2025 10:12 [...] Description 05/04/2025 8:30 AM EDT Ancillary Procedure [facility] [address] [place] [address] Encounter for adjustment or management of cardiac device 04/28/2025 11:20 AM EDT Ancillary Procedure [facility] [address] [place] [address] 04/28/2025 Telephone [facility] [address] [place] [address] Litzy Dwyer NP 03/19/2025 Telephone [facility] [address] [place] [address] Wilver Cortez MD Med Refill; Prior Auth [...] Description 12/02/2025 9:30 AM EST Ancillary Procedure [facility] [address] [facility] [address] [place] [address] Health Maintenance Due Date Last Done Comments DTaP,Tdap,and Td Vaccines (1 - Tdap) 1959 Pneumococcal Vaccine: 50+ Years (1 of 2 - PCV) 1959 Zoster Vaccines (1 of 2) 1988 Falls Risk Assessment 10/21/2022 Medicare Annual Wellness Visit 10/21/2022 Social Influencers of Health Screening 10/21/2022 Depression Screening 11/12/2024 COVID-19 Vaccine ( season) 2025 07/22/2024, 08/15/2023, [...] this topic Medical Devices Implanted Type Area Reinforcing Rod Layer Device Identifier Shelf Expiration Date Model / Serial / Lot Dianerica-Stju 227 Assurity Mri(Tm) [id number] Implanted: by Jj Dye MD (Quantity not on file) Cardiac Pacemaker Left: Chest [facility] 2272 ASSURITY MRI(TM) / [id number] / Abbt-Stju Assurity Mri [id number] Implanted: (Quantity not on file) Cardiac Pacemaker [facility] MRI 2272 / [id number] / Procedures Procedure Name Priority Date/Time Associated [...] 9:28 AM EDT) Date Time Interrogation Session [id number] CV DEVICE CHECK Implantable Pulse Generator Reinforcing Rod Layer [place] CV DEVICE CHECK Implantable Pulse Generator Type IPG CV DEVICE CHECK Implantable Pulse Generator Model Assurity MRI 2272 CV DEVICE CHECK Implantable Pulse Generator Serial Number [id number] CV DEVICE CHECK Implantable Pulse Generator Implant [...] 11:19 AM EDT) Date Time Interrogation Session [id number] CV DEVICE CHECK Type Interrogation Session Remote Scheduled CV DEVICE CHECK Implantable Pulse Generator Reinforcing Rod Layer [place] CV DEVICE CHECK Implantable Pulse Generator Type IPG CV DEVICE CHECK Implantable Pulse Generator Model 2272 Assurity MRI(TM) CV DEVICE CHECK Implantable Pulse Generator Serial Number [id number] CV DEVICE CHECK Implantable Pulse Generator Implant Date 20220901 CV DEVICE CHECK Battery Remaining Percentage 70.00 CV DEVICE CHECK Battery Remaining Longevity 65.0 CV DEVICE CHECK Battery Voltage 3.010 CV D EVICE CHECK Battery MANAGER INTELLIGENCE Trigger 2.600 CV DEVICE CHECK Battery Status Middle of Service CV DEVICE CHECK Joey Statistic RA Percent Paced 14.00 CV DEVICE CHECK Joey Statistic RV Percent Paced 92.00 CV DEVICE CHECK Atrial Tachy Statistic AT/AF [place] Percent 27.00 CV DEVICE CHECK Lead Channel [...] reviewed * Heart Rate Histograms reviewed Result [facility] [place] [facility] Litzy Dwyer NP CV IMPLANTABLE CARDIAC DEVIC [...] mmol/L LAB CHEMISTRY METHOD 01/29/2025 11:29 AM [facility] CO2 30 21 - 32 mmol/L LAB CHEMISTRY METHOD 01/29/2025 11:29 AM T [facility] Anion Gap 6 3 - 11 LAB CHEMISTRY METHOD 01/29/2025 11:29 AM [facility] Glucose 103(H) 70 - 100 mg/dL LAB CHEMISTRY METHOD 01/29/2025 11:29 AM [facility] BUN 33(H) 5 - 25 mg/dL LAB CHEMISTRY METHOD 01/29/2025 11:29 AM [facility] Creatinine 1.07 0.70 - 1.30 mg/dL LAB CHEMISTRY METHOD 01/29/2025 11:29 AM [facility] eGFR 68 >=60 mL/min/1. 73m2 LAB CHEMISTRY METHOD 01/29/2025 11:29 AM [facility] Comment:Calculation based on the Chronic Kidney Disease Epidemiology Collaboration (CKD-EPI) equation refit without adjustment for race. BUN/Creatinine Ratio 30.8 LAB CHEMISTRY METHOD 01/29/2025 11:29 AM [facility] Calcium 9.0 8.5 - 10.5 mg/dL LAB CHEMISTRY METHOD 01/29/2025 11:29 AM [facility] Blood Venous blood specimen / Unknown Venipuncture / Unknown 01/29/2025 8:07 AM EDT 01/29/2025 8:07 AM EDT [facility] LAB BLOOD ORDERABLES Final Resul t [facility] [address] [place] [address], * (ABNORMAL) Lipid panel with reflex to direct LDL (01/16/2025 2:17 PM EST) Cholesterol 130 0 - 200 mg/dL LAB CHEMISTRY METHOD 01/16/2025 7:44 PM EST [facility] Triglycerides 174(H) 0 - 150 mg/dL LAB CHEMISTRY METHOD 01/16/2025 7:44 PM EST [facility] HDL 46 >=40 mg/dL LAB CHEMISTRY METHOD 01/16/2025 7:44 PM [facility] LDL Calculated 49 0 - 100 mg/dL LAB CHEMISTRY METHOD 01/16/2025 7:44 PM [facility] VLDL Cholesterol [place] 34.8 mg/dL LAB CHEMISTRY METHOD 01/16/2025 7:44 PM [facility] Non HDL Chol. (LDL+VLDL) 84 <145 mg/dL LAB CHEMISTRY METHOD 01/16/2025 7:44 PM [facility] Chol/HDL Ratio 2.8 0.0 - 4.4 LAB CHEMISTRY METHOD 01/16/2025 7:44 PM [facility] Blood Venous blood specimen / Unknown Venipuncture / Unknown 01/16/2025 2:17 PM EST 01/16/2025 2:17 PM EST us Wilver Cortez MD LAB BLOOD ORDERABLES Final Resu lt [facility] [address] [place] [address], from Last 3 Months or Most Recently Relevant to Health Maintenance Insurance [facility]ICARE [facility] Care Teams Quality Control Director Relationship Specialty Start Date End Date Jonathan Carter DO [address] [place] [phone] PCP - General Internal Medicine 04/24/14
--- OUTSIDE RECORDS SUMMARY | 2025-06-03 14:46 | XMS_ITS | Patient Health Record ---
Author Organization [facility] Address [address] [facility] [place] [address] Care Team Providers Care Menswear Salesperson Name Role Phone Raul BROCK, Jonathan Primary Care Provider Beatriz Esqueda Unavailable [phone] Allergies No Known Allergies Reason For Referral [...] atherosclerosis of arteries of lower limbs (disorder) ([id number] ) Atherosclerosis of [place] artery of both lower extremities, with unspecified presence of clinical manifestation (I70.203) Active confirmed Plan Of Treatment Pending Test Test Name Order Date X ray : Foot, right 3V 12/18/2022 Insurance Providers Payer Name Payer Address Payer Phone Subscriber Number Group Number Insured Name Patient Relationship to Insured Coverage Start Date Coverage End Date Medicare National Govt Svcs Inc [address] [place] [address] [id number] Mesfin Wright Self - patient is the insured [employer] [address] [place] [address] [id number] Mesfin Wright Self - patient is the insured Medical (General) History Medical History History ICD Code Cancer covid-19 Heart disease High blood pressure Bone implants/screws Heart valve conditions/replacement Gout Surgical History Surgery Date(Month/Year) Heart Valve replacement cardiac pacemeker knee replacement
== END 2025-06-03 15:13 | disposition home or self-care (01) ==
LOC: HO.HOS 14:03
PROVIDERS: PCP Internal Medicine; Visit Provider Orthopaedic Surgery
DX: G56.03 Carpal tunnel syndrome, bilateral upper limbs (principal); G56.23 Lesion of ulnar nerve, bilateral upper limbs
CPT/HCPCS: 99214

== ENCOUNTER → 2025-06-03 14:02 | Outpatient (BNVA) | payer MEDICARE, OTHER, SELFPAY | PROVIDERS: PCP Internal Medicine; Visit Provider Orthopaedic Surgery | DX: G56.03 Carpal tunnel syndrome, bilateral upper limbs (principal); G56.23 Lesion of ulnar nerve, bilateral upper limbs | CPT/HCPCS: 99212 ==

== ENCOUNTER 2025-06-15 07:21 | Day surgery (SDC) | payer MEDICARE, OTHER, SELFPAY ==
--- OUTSIDE RECORDS SUMMARY | 2025-06-09 12:57 | XMS_ITS | Clinical Summary ---
Author Organization [address] [place] [address] [place] [phone] Phone Care Team Providers Care Automatic Line Set Up Mechanic Name Role Phone Jonathan Carter Primary Care Provider [phone] Allergies No known active allergies Medications amoxicillin [...] AM EST): Chronic diastolic congestive heart failure (CMS/[facility] V24, CMS/HCC V28) 08/09/2023 Complete heart [...] mg bid. Coronary artery disease invo lving [place] coronary artery of [place] heart without angina pectoris 06/28/2022 Assessment & [...] they were to faint. Secondary hypercoagulable state ([facility] V24) Assessment & Plan (01/15/2025 10:12 AM EST): Chronic heart failure with p reserved ejection fraction ([facility] V24, [facility] V28) 06/01/2022 Assessment & Plan (01/15/2025 [...] Description 05/04/2025 8:30 AM EDT Ancillary Procedure [facility] [address] [place] [address] Encounter for adjustment or management of cardiac device 04/28/2025 11:20 AM EDT Ancillary Procedure [facility] [address] [place] [address] 04/28/2025 Telephone [facility] [address] [place] [address] Litzy Dwyer NP 03/19/2025 Telephone [facility] [address] [place] [address] Wilver Cortez MD Med Refill; Prior Auth [...] Description 12/02/2025 9:30 AM EST Ancillary Procedure [facility] [address] [facility] [address] [place] [address] Health Maintenance Due Date Last [...] this topic Medical Devices Implanted Type Area Sieve Grader Tender Device Identifier Shelf Expiration Date Model / Serial / Lot Dianerica-Stju 227 Assurity Mri(Tm) [id number] Implanted: by Jj Dye MD (Quantity not on file) Cardiac Pacemaker Left: Chest [facility] 2272 ASSURITY MRI(TM) / [id number] / Abbt-Stju Assurity Mri [id number] Implanted: (Quantity not on file) Cardiac Pacemaker [facility] MRI 2272 / [id number] / Procedures Procedure Name Priority Date/Time Associated [...] 9:28 AM EDT) Date Time Interrogation Session [id number] CV DEVICE CHECK Implantable Pulse Generator Sieve Grader Tender [place] CV DEVICE CHECK Implantable Pulse Generator Type IPG CV DEVICE CHECK Implantable Pulse Generator Model Assurity MRI 2272 CV DEVICE CHECK Implantable Pulse Generator Serial Number [id number] CV DEVICE CHECK Implantable Pulse Generator Implant [...] 11:19 AM EDT) Date Time Interrogation Session [id number] CV DEVICE CHECK Type Interrogation Session Remote Scheduled CV DEVICE CHECK Implantable Pulse Generator Sieve Grader Tender [place] CV DEVICE CHECK Implantable Pulse Generator Type IPG CV DEVICE CHECK Implantable Pulse Generator Model 2272 Assurity MRI(TM) CV DEVICE CHECK Implantable Pulse Generator Serial Number [id number] CV DEVICE CHECK Implantable Pulse Generator Implant Date 20220901 CV DEVICE CHECK Battery Remaining Percentage 70.00 CV DEVICE CHECK Battery Remaining Longevity 65.0 CV DEVICE CHECK Battery Voltage 3.010 CV D EVICE CHECK Battery COURT SPECIALIST Trigger 2.600 CV DEVICE CHECK Battery Status Middle of Service CV DEVICE CHECK Joey Statistic RA Percent Paced 14.00 CV DEVICE CHECK Joey Statistic RV Percent Paced 92.00 CV DEVICE CHECK Atrial Tachy Statistic AT/AF [place] Percent 27.00 CV DEVICE CHECK Lead Channel [...] reviewed * Heart Rate Histograms reviewed Result [facility] Litzy Dwyer NP CV IMPLANTABLE CARDIAC DEVIC E PROCEDURES Final Result * (ABNORMAL) Basic metabolic panel (01/29/2025 8:07 AM EDT) Sodium 145 133 - 145 mmol/L LAB CHEMISTRY METHOD 01/29/2025 11:29 AM EDT [facility] Potassium 4.2 3.5 - 5.5 mmol/L LAB CHEMISTRY METHOD 01/29/2025 11:29 AM EDT [facility] Chloride 109 96 - 110 mmol/L LAB CHEMISTRY METHOD 01/29/2025 11:29 AM [facility] CO2 30 21 - 32 mmol/L LAB CHEMISTRY METHOD 01/29/2025 11:29 AM T [facility] Anion Gap 6 3 - 11 LAB CHEMISTRY METHOD 01/29/2025 11:29 AM [facility] Glucose 103(H) 70 - 100 mg/dL LAB CHEMISTRY METHOD 01/29/2025 11:29 AM [facility] BUN 33(H) 5 - 25 mg/dL LAB CHEMISTRY METHOD 01/29/2025 11:29 AM [facility] Creatinine 1.07 0.70 - 1.30 mg/dL LAB CHEMISTRY METHOD 01/29/2025 11:29 AM [facility] eGFR 68 >=60 mL/min/1. 73m2 LAB CHEMISTRY METHOD 01/29/2025 11:29 AM [facility] Comment:Calculation based on the Chronic Kidney Disease Epidemiology Collaboration (CKD-EPI) equation refit without adjustment for race. BUN/Creatinine Ratio 30.8 LAB CHEMISTRY METHOD 01/29/2025 11:29 AM [facility] Calcium 9.0 8.5 - 10.5 mg/dL LAB CHEMISTRY METHOD 01/29/2025 11:29 AM [facility] Blood Venous blood specimen / Unknown Venipuncture / Unknown 01/29/2025 8:07 AM EDT 01/29/2025 8:07 AM EDT [facility] LAB BLOOD ORDERABLES Final Resul t [facility] [address] [place] [address], * (ABNORMAL) Lipid panel with reflex to direct LDL (01/16/2025 2:17 PM EST) Cholesterol 130 0 - 200 mg/dL LAB CHEMISTRY METHOD 01/16/2025 7:44 PM EST [facility] Triglycerides 174(H) 0 - 150 mg/dL LAB CHEMISTRY METHOD 01/16/2025 7:44 PM EST [facility] HDL 46 >=40 mg/dL [...] MD LAB BLOOD ORDERABLES Final Resu lt [facility] [address] [place] [address], from Last 3 Months or Most Recently Relevant to Health Maintenance Insurance MEDICARE ON LICENSE OF [facility] Care Teams Automatic Line Set Up Mechanic Relationship Specialty Start Date End Date Jonathan Carter DO [address] [place] [phone] PCP - General Internal Medicine 04/24/14
--- OUTSIDE RECORDS SUMMARY | 2025-06-09 12:57 | XMS_ITS | Patient Health Record ---
Author Organization [facility] Address [address] [place] [address] Care Team Providers Care Physician Office Secretary Name Role Phone Raul BROCK, Jonathan Primary Care Provider Beatriz Esqueda Unavailable [phone] Allergies No Known Allergies Reason For Referral [...] atherosclerosis of arteries of lower limbs (disorder) ([id number] ) Atherosclerosis of [place] artery of both lower extremities, with unspecified presence of clinical manifestation (I70.203) Active confirmed Plan Of Treatment Pending Test Test Name Order Date X ray : Foot, right 3V 12/18/2022 Insurance Providers Payer Name Payer Address Payer Phone Subscriber Number Group Number Insured Name Patient Relationship to Insured Coverage Start Date Coverage End Date Medicare National [employer] [address] [place] [address] [id number] Mesfin Wright Self - patient is the insured [employer] [address] [place] [address] [id number] Mesfin Wright Self - patient is the insured Medical (General) History Medical History History ICD Code Cancer covid-19 Heart disease High blood pressure Bone implants/screws Heart valve conditions/replacement Gout Surgical History Surgery Date(Month/Year) Heart Valve replacement cardiac pacemeker knee replacement
[2025-06-15 08:26] VITALS: BP 133/72; PULSE 60; RESP 16; TEMP 36.4; O2SAT 96; BMI 30.4
--- NOTE | 2025-06-15 08:46 | MHC.SHP ---
Pre-Procedural Eval Section A - 24 Hr Update-Section A only Date of Service: 06/15/25 The patient is an INPATIENT: No Changes since office visit: No Cold of Flu in the past 2 weeks, No New Medical Problems, No Changes in Medication and No Patient answered all questions The patient has been examined within 24 hours of the surgical procedure. The History & Physical has been completed within 30 days and I have reviewed it.: Yes Section B - Complete if H&P > 30 days Chief Complaint: Carpal tunnel syndrome, right upper limb Allergies: Allergies Allergy/AdvReac Type Severity Reaction Status Date / Time No Known Allergies Allergy Verified 06/03/25 14:43 Plan Diagnosis/Plan: Unchanged I have reviewed the history and physical and performed a pertinent physical examination on my patient. No changes have occurred unless specified. Time Spent With Patient Time: Total time managing care of this patient today ____ minutes.
--- NOTE | 2025-06-15 08:47 | W.PM.OPN ---
Operative Note Operative Note Date of Service: 06/15/25 Narrative: Preop diagnosis: 1. Right Carpal tunnel syndrome Postop diagnosis: same Procedure: 1. Right Carpal tunnel release Surgeon: Jolanta Restrepo MD Md Pediatric Allergist: None Anesthesia: local block using 1% lidocaine with epinephrine Findings: Thickened transverse carpal ligament. EBL: Less than 5 mL Specimens: None Complications: None Disposition: Brought to recovery room in stable condition Plan: Follow-up for 10-14 days for wound check and suture removal Indications: The patient is 84 years old, with right carpal tunnel syndrome that has been unresponsive to nonoperative management. The risks and benefits of operative treatment including but not limited to risk of damage to blood vessels, nerves, tendons, infection, persistent pain, persistent symptoms, or possible need for additional surgery were discussed with the patient and the patient wishes to proceed with surgery. Procedure: Once consent was obtained a local block was performed using a combination of 1% lidocaine with epinephrine. The patient was then brought back to the operating suite and placed on the operative table in supine position. The right upper extremity was prepped and draped in a standard surgical fashion. Once assured that we had a good block, a 2.0 cm longitudinal incision was made centered over the carpal tunnel. The incision was made through the skin to the subcutaneous tissues using a #15 blade. Dissection was made down to the level of the transverse carpal ligament with care being taken to protect the palmar cutaneous nerve. Once the transverse carpal ligament was clearly visualized, a longitudinal incision was made in the transverse carpal ligament 1st using a #15 blade, then using tenotomy scissors under direct visualization. Care was taken to look for and protect the motor branch of the median nerve when seen in this area. Once satisfied with our carpal tunnel release the wound was copiously irrigated with normal saline and hemostasis was obtained with a brief period of local pressure. The skin edges were reapproximated with some 5.0 nylon suture material and a sterile dressing was applied. The patient appears to have tolerated the procedure well and with no complications. All digits were well vascularized at the conclusion of the case.
[2025-06-15 10:09] VITALS: BP 143/76; PULSE 61; RESP 16; O2SAT 96
== END 2025-06-15 10:10 | disposition home or self-care (01) ==
PROVIDERS: PCP Internal Medicine; Visit Provider Orthopaedic Surgery
PROC: (CPT 64721; principal; 2025-06-15 08:50)
DX: G56.01 Carpal tunnel syndrome, right upper limb (principal); G56.21 Lesion of ulnar nerve, right upper limb; R20.0 Anesthesia of skin; R20.2 Paresthesia of skin; Z95.5 Presence of coronary angioplasty implant and graft; Z79.01 Long term (current) use of anticoagulants; Z98.890 Other specified postprocedural states
CPT/HCPCS: 64721; J0165; J2003

== ENCOUNTER → 2025-06-15 07:21 | Outpatient (BNV) | payer MEDICARE, OTHER, SELFPAY | PROVIDERS: PCP Internal Medicine; Visit Provider Orthopaedic Surgery | DX: G56.01 Carpal tunnel syndrome, right upper limb (principal) | CPT/HCPCS: 64721 ==

== ENCOUNTER 2025-06-30 13:17 | Outpatient (AMB) | payer MEDICARE, OTHER, SELFPAY ==
[2025-06-30 13:27] VITALS: BMI 30.4
--- NOTE | 2025-06-30 13:27 | A.OFFVIS_ITS ---
Vital Signs 06/30/25 13:27 Height 6 ft Weight 224 lb BMI 30.4 Intake Visit Reasons: PO RT CTR 06/15/25 AR Intake Note: Mesfin is an 84 year old right hand dominant male who presents today for post- operatively status post right carpal tunnel, DOS: 06/15/[address] Restrepo. Patient reports he is still having numbness and tingling but improved since the surgery. He is taking Tylenol for pain with relief. Sutures removed and steri strips applied. Allergies No Known Allergies Allergy (Verified 06/30/25 13:27) HPI HPI PO RT CTR 06/15/25 AR: Details: Mesfin is an 84 year old right hand dominant male who presents today for post- operatively status post right carpal tunnel, DOS: 06/15/[address] Restrepo. Patient reports he is still having numbness and tingling but improved since the surgery. He is taking Tylenol for pain with relief. Sutures removed and steri strips applied. PFSH Medical History (Updated 06/15/25 @ 08:29 by Rosana Patton RN) Bilateral cataracts Hx of cardiac pacemaker Surgical History (Updated 06/15/25 @ 08:30 by Rosana Patton RN) H/O endoscopy H/O colonoscopy H/O prostatectomy Hx of tonsillectomy Hx of heart surgery Hx of total knee replacement Social History (Updated 06/03/25 @ 14:44 by RIVERA Monaco) Current occupational status: disabled Current occupation: rt hand Review of Systems Const All systems reviewed & are unremarkable except as noted in HPI and below Physical Exam Vital Signs: BMI result Body Mass Index 30.4 Const General: cooperative, healthy appearing and no acute distress Orientation/consciousness: patient oriented x3 HEENT Head: Yes normocephalic and Yes atraumatic Eyes EOM: EOMs intact bilaterally Resp Effort & Inspection: normal respiratory effort and able to speak in complete sentences Cardio Jugular venous distension: no JVD Skin General skin exam: turgor normal Rashes: no rashes Neuro General: patient oriented x3 Extrem Other: Evaluation of Right Upper Extremity: The patient is alert, oriented, and in no acute distress Neuro: Decreased subjective sensation in the right middle & ring fingers. Normal sensation to all other fingers in his right hand No thenar or intrinsic wasting Good APB muscle belly firing and good finger cross Vascular: Cap refill brisk ROM: He can make a fist and extend all his digits No locking or catching Skin: Well approximated and well healing incision site noted on the volar right wrist No lacerations or abrasions. General: No Ecchymosis. No Erythema or evidence of infection. Radiographs: IMPRESSION: 1. 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 2. Mild bilateral ulnar neuropathy across cubital tunnel. Porsche Chavez MD 05/19/2025 Psych Appearance: grossly normal Affect: normal affect Attitude: cooperative Assessment & Plan Assessment & Plan (1) Carpal tunnel syndrome of right wrist: Code(s): G56.01 - Carpal tunnel syndrome, right upper limb Category: Medical Plan 1. Status post right carpal tunnel release DOS 06/15/2025 With incomplete symptom resolution postoperatively Patient appears to be recovering fairly well postoperatively Patient is educated about the typical recovery course Patient is educated that it can take up to 9 months for total symptom resolution, although he was experiencing dense numbness prior to surgery and there is an increased risk of not getting normal sensation back Patient understands this is amenable to this plan Patient is educated on no under water activities for one-week, 2 lb weight limit for 2 weeks Follow-up as needed Coding Level of Care Code Global (68372) Diagnoses Carpal tunnel syndrome of right wrist G56.01
--- OUTSIDE RECORDS SUMMARY | 2025-06-30 14:31 | XMS_ITS | Patient Health Record ---
Author Organization [facility] Address [address] [place] [address] Care Team Providers Care Cut Off Saw Operator Name Role Phone Raul BROCK, Jonathan Primary Care Provider Beatriz Esqueda Unavailable [phone] Allergies No Known Allergies Reason For Referral [...] atherosclerosis of arteries of lower limbs (disorder) ([id number] ) Atherosclerosis of [place] artery of both lower extremities, with unspecified presence of clinical manifestation (I70.203) Active confirmed Plan Of Treatment Pending Test Test Name Order Date X ray : Foot, right 3V 12/18/2022 Insurance Providers Payer Name Payer Address Payer Phone Subscriber Number Group Number Insured Name Patient Relationship to Insured Coverage Start Date Coverage End Date Medicare National Gov[employer] Sv[employer] [address] [place] [address] [id number] Mesfin Wright Self - patient is the insured [employer] [address] [place] [address] [id number] Mesfin Wright Self - patient is the insured Medical (General) History Medical History History ICD Code Cancer covid-19 Heart disease High blood pressure Bone implants/screws Heart valve conditions/replacement Gout Surgical History Surgery Date(Month/Year) Heart Valve replacement cardiac pacemeker knee replacement
--- OUTSIDE RECORDS SUMMARY | 2025-06-30 14:31 | XMS_ITS | Clinical Summary ---
Author Organization [address] [place] [address] [place] [phone] Phone Care Team Providers Care Certified Professional Midwife Name Role Phone Jonathan Carter Primary Care Provider [phone] Allergies No known active allergies Medications amoxicillin [...] AM EST): Chronic diastolic congestive heart failure (CMS/[facility] V24, CMS/HCC V28) 08/09/2023 Complete heart block [...] mg bid. Coronary artery disease invo lving [place] coronary artery of [place] heart without angina pectoris 06/28/2022 Assessment & [...] they were to faint. Secondary hypercoagulable state ([facility] V24) Assessment & Plan (01/15/2025 10:12 AM EST): Chronic heart failure with p reserved ejection fraction ([facility] V24, [facility] V28) 06/01/2022 Assessment & Plan [...] Encounters Date Type Department Care Team Description 06/29/2025 Telephone [facility] Cardiology [facility] [address] [place] [address] Wilver Cortez MD Appointment 05/04/2025 8:30 AM EDT Ancillary Procedure [facility] [address] [place] [address] Encounter for adjustment or management of cardiac device 04/28/2025 11:20 AM EDT Ancillary Procedure [facility] [address] [place] [address] 04/28/2025 Telephone [facility] [address] [place] [address] Litzy Dwyer NP from Last 3 Months Surgical History Surgery [...] Description 12/02/2025 9:30 AM EST Ancillary Procedure [facility] [address] [facility] [address] [place] [address] Health Maintenance Due Date Last [...] 01/09/2024, 08/17/2022 Hypertension/CHF/CAD Annual BMP Blood Test 06/18/2026 06/18/2025, 01/29/2025, 01/16/2025, Additional history exists Cholesterol Screening (Lipid Panel) 06/18/2030 06/18/2025, 01/16/2025, 01/07/2025, Additional history exists RSV Immunization Adult Patients Completed 10/30/2023 HIB [...] this topic Medical Devices Implanted Type Area Visual Specialist Device Identifier Shelf Expiration Date Model / Serial / Lot Abbt-Stju 2272 Assurity Mri(Tm) [id number] Implanted: by Jj Dye MD (Quantity not on file) Cardiac Pacemaker Left: Chest [employer] [employer] 2272 ASSURITY MRI(TM) / [id number] / Abbt-Stju Assurity Mri [id number] Implanted: (Quantity not on file) Cardiac Pacemaker [employer] [facility] [employer] MRI 2272 / [id number] / Procedures Procedure Name Priority Date/Time Associated Diagnosis Comments CBC WITH AUTO DIFFERENTIAL Routine 06/18/2025 9:13 AM EDT HTN (hypertension) IGT (impaired glucose tolerance) HEMOGLOBIN A1C Routine 06/18/2025 9:13 AM EDT Routine general medical examination at a health care facility CAD (coronary artery disease) HLD (hyperlipidemia) Aortic valve stenosis Abnormal finding of blood chemistry, unspecified COMPREHENSIVE METABOLIC PANEL Routine 06/18/2025 9:13 AM EDT Routine general medical examination at a [facility] facility CAD (coronary artery disease) HLD (hyperlipidemia) Aortic valve stenosis THYROID STIMULATING HORMONE Routine 06/18/2025 9:13 AM EDT Routine general medical examination at a health care facility CAD (coronary artery disease) HLD (hyperlipidemia) Aortic valve stenosis PROSTATE SPECIFIC ANTIGEN SCREEN Routine 06/18/2025 9:13 AM EDT Routine general medical examination at a [facility] care facility CAD (coronary artery disease) HLD (hyperlipidemia) Aortic valve stenosis Encounter for screening for malignant neoplasm of prostate LIPID PANEL WITH REFLEX TO DIRECT LDL Routine 06/18/2025 9:13 AM EDT Routine general medical examination at a health care facility CAD (coronary artery disease) HLD (hyperlipidemia) Aortic valve stenosis CBC AND DIFFERENTIAL Routine 06/18/2025 9:13 AM EDT HTN (hypertension) IGT (impaired glucose tolerance) CARDIAC DEVICE CHECK- IN CLINIC- MURJ Routine 05/04/2025 9:28 AM EDT Encounter for adjustment or management of cardiac device CARDIAC DEVICE CHECK- REMOTE- MURJ Routine 04/28/2025 11:19 AM EDT from Last 3 Months Results * Prostate specific antigen screen (06/18/2025 9:13 AM EDT) PSA <0.06 0.00 - 4.00 ng/mL LAB CHEMISTRY METHOD 06/18/2025 12:47 PM EDT [facility] Blood Venous blood specimen / Unknown Venipuncture / Unknown 06/18/2025 9:13 AM EDT 06/18/2025 9:13 AM EDT Narrative [facility] - 06/18/2025 12:47 PM EDT The Siemens Advia Centaur Chemiluminescent Immunoassay is used. Results obtained with different assay methods or kits cannot be used interchangeably. Results cannot be interpreted as absolute evidence of the presence or absence of malignant disease. us [place] LAB BLOOD ORDERABLES Final Resul t [facility] [address] [place] [address], * Lipid panel with reflex to direct LDL (06/18/2025 9:13 AM EDT) Cholesterol 139 0 - 200 mg/dL LAB CHEMISTRY METHOD 06/18/2025 11:57 AM EDT [facility] Triglycerides 118 0 - 150 mg/dL LAB CHEMISTRY METHOD 06/18/2025 11:57 AM EDT [facility] HDL 49 >=40 mg/dL LAB CHEMISTRY METHOD 06/18/2025 11:57 AM EDT [facility] LDL Calculated 66 0 - 100 mg/dL LAB CHEMISTRY METHOD 06/18/2025 11:57 AM EDT [facility] Comment:Estimated LDL Calcul ated using equation: Total cholesterol - HDL cholesterol - (Triglycerides/5) VLDL Cholesterol Pepe 23.6 mg/dL LAB CHEMISTRY METHOD 06/18/2025 11:57 AM EDT [facility] Non HDL Chol. (LDL+VLDL) 90 <145 mg/dL LAB CHEMISTRY METHOD 06/18/2025 11:57 AM EDT [facility] Chol/HDL Ratio 2.8 0.0 - 4.4 LAB CHEMISTRY METHOD 06/18/2025 11:57 AM T [facility] Blood Venous blood specimen / Unknown Venipuncture / Unknown 06/18/2025 9:13 AM EDT 06/18/2025 9:13 AM EDT [facility] LAB BLOOD ORDERABLES Final Resul t [facility] [address] [place] [address], * (ABNORMAL) CBC auto differential (06/18/2025 9:13 AM EDT) WBC 6.7 4.8 - 10.8 K/mcL LAB HEMETOLOGY METHOD 06/18/2025 11:45 AM EDT [facility] RBC 4.80 4.50 - 5.50 M/mcL LAB HEMETOLOGY METHOD 06/18/2025 11:45 AM EDT [facility] Hemoglobin 13.2(L) 13.5 - 17.5 g/dL LAB HEMETOLOGY METHOD 06/18/2025 11:45 AM EDT [facility] Hematocrit 42.9 42.0 - 54.0 % LAB HEMETOLOGY METHOD 06/18/2025 11:45 AM EDT [facility] MCV 90.3 79.0 - 98.0 FL LAB HEMETOLOGY METHOD 06/18/2025 11:45 AM EDT [facility] MCH 27.8 27.0 - 32.0 pcg LAB HEMETOLOGY METHOD 06/18/2025 11:45 AM EDT [facility] MCHC 30.8(L) 32.0 - 37.0 g/dL LAB HEMETOLOGY METHOD 06/18/2025 11:45 AM EDT [facility] RDW 14.4 11.0 - 15.0 % LAB HEMETOLOGY METHOD 06/18/2025 11:45 AM EDT [facility] Platelets 246 130 - 400 K/mcL LAB HEMETOLOGY METHOD 06/18/2025 11:45 AM EDT [facility] MPV 11.1(H) 7.0 - 11.0 FL LAB HEMETOLOGY METHOD 06/18/2025 11:45 AM [facility] NRBC 0.0 <1.0 % LAB HEMETOLOGY METHOD 06/18/2025 11:45 AM [facility] NRBC Absolute 0.00 <0.10 K/mcL LAB HEMETOLOGY METHOD 06/18/2025 11:45 AM [facility] Neutrophils Relative 60.3 % LAB HEMETOLOGY METHOD 06/18/2025 11:45 AM [facility] Lymphocytes Relative 27.3 % LAB HEMETOLOGY METHOD 06/18/2025 11:45 AM [facility] Monocytes Relative 10.5 % LAB HEMETOLOGY METHOD 06/18/2025 11:45 AM [facility] Eosinophils Relative 1.3 % LAB HEMETOLOGY METHOD 06/18/2025 11:45 AM [facility] Basophils Relative 0.3 % LAB HEMETOLOGY METHOD 06/18/2025 11:45 AM [facility] Immature Granulocytes Relative 0.3 % LAB HEMETOLOGY METHOD 06/18/2025 11:45 AM [facility] Neutrophils Absolute 4.05 1.50 - 7.00 K/mcL LAB HEMETOLOGY METHOD 06/18/2025 11:45 AM [facility] Lymphocytes Absolute 1.84 1.00 - 5.00 K/mcL LAB HEMETOLOGY METHOD 06/18/2025 11:45 AM [facility] Monocytes Absolute 0.71 0.20 - 1.00 K/mcL LAB HEMETOLOGY METHOD 06/18/2025 11:45 AM [facility] Eosinophils Absolute 0.09 0.00 - 0.50 K/mcL LAB HEMETOLOGY METHOD 06/18/2025 11:45 AM [facility] Basophils Absolute 0.02 0.00 - 0.20 K/mcL LAB HEMETOLOGY METHOD 06/18/2025 11:45 AM EDT [facility] Immature Granulocytes Absolute 0.02 0.00 - 0.03 K/[facility] LAB HEMETOLOGY METHOD 06/18/2025 11:45 AM EDT [facility] Blood Venous blood specimen / Unknown Venipuncture / Unknown 06/18/2025 9:13 AM EDT 06/18/2025 9:13 AM EDT [facility] LAB BLOOD ORDERABLES Final Resul t [facility] [address] [place] [address], [place] [phone] * Thyroid stimulating hormone (06/18/2025 9:13 AM EDT) TSH 0.64 0.40 - 4.00 mcIU/mL LAB CHEMISTRY METHOD 06/18/2025 2:03 PM EDT [facility] Blood Venous blood specimen / Unknown Venipuncture / Unknown 06/18/2025 9:13 AM EDT 06/18/2025 9:13 AM EDT [facility] LAB BLOOD ORDERABLES Final Resul t [facility] [address] [place] [address], [place] [phone] * Hemoglobin A1c (06/18/2025 9:13 AM EDT) Hemoglobin A1C 6.1 <6.5 % LAB CHEMISTRY METHOD 06/18/2025 1:09 PM EDT [facility] Mean Bld Glu Estim. 128 mg/dL LAB CHEMISTRY METHOD 06/18/2025 1:09 PM EDT [facility] Blood Venous blood specimen / Unknown Venipuncture / Unknown 06/18/2025 9:13 AM EDT 06/18/2025 9:13 AM EDT [facility] LAB BLOOD ORDERABLES Final Resul t [facility] [address] [place] [address], [place] [phone] * (ABNORMAL) Comprehensive metabolic panel (06/18/2025 9:13 AM EDT) Sodium 142 133 - 145 mmol/L LAB CHEMISTRY METHOD 06/18/2025 11:57 AM [facility] Potassium 4.3 3.5 - 5.5 mmol/L LAB CHEMISTRY METHOD 06/18/2025 11:57 AM [facility] Chloride 110 96 - 110 mmol/L LAB CHEMISTRY METHOD 06/18/2025 11:57 AM [facility] CO2 28 21 - 32 mmol/L LAB CHEMISTRY METHOD 06/18/2025 11:57 AM [facility] Anion Gap 4 3 - 11 LAB CHEMISTRY METHOD 06/18/2025 11:57 AM [facility] Glucose 96 70 - 100 mg/dL LAB CHEMISTRY METHOD 06/18/2025 11:57 AM [facility] BUN 21 5 - 25 mg/dL LAB CHEMISTRY METHOD 06/18/2025 11:57 AM [facility] Creatinine 1.11 0.70 - 1.30 mg/dL LAB CHEMISTRY METHOD 06/18/2025 11:57 AM [facility] eGFR 65 >=60 mL/min/1. 73m2 LAB CHEMISTRY METHOD 06/18/2025 11:57 AM [facility] Comment:Calculation based on the Chronic Kidney Disease Epidemiology Collaboration (CKD-EPI) equation refit without adjustment for race. BUN/Creatinine Ratio 18.9 LAB CHEMISTRY METHOD 06/18/2025 11:57 AM [facility] Calcium 8.7 8.5 - 10.5 mg/dL LAB CHEMISTRY METHOD 06/18/2025 11:57 AM [facility] AST (SGOT) 12 10 - 42 unit/L LAB CHEMISTRY METHOD 06/18/2025 11:57 AM [facility] ALT (SGPT) 13 10 - 60 unit/L LAB CHEMISTRY METHOD 06/18/2025 11:57 AM T [facility] Alkaline Phosphatase 78 42 - 121 unit/L LAB CHEMISTRY METHOD 06/18/2025 11:57 AM T [facility] Total Protein 5.6(L) 6.0 - 8.0 g/dL LAB CHEMISTRY METHOD 06/18/2025 11:57 AM [facility] Albumin 3.2 3.2 - 5.0 g/dL LAB CHEMISTRY METHOD 06/18/2025 11:57 AM [facility] Total Bilirubin 0.4 0.0 - 1.4 mg/dL LAB CHEMISTRY METHOD 06/18/2025 11:57 AM [facility] Blood Venous blood specimen / Unknown Venipuncture / Unknown 06/18/2025 9:13 AM EDT 06/18/2025 9:13 AM EDT [facility] BLOOD ORDERABLES Final Resul t [facility] [address] [place] [address], * CARDIAC DEVICE CHECK- IN CLINIC- MUR (05/04/2025 9:28 AM EDT) Date Time Interrogation Session [id number] CV DEVICE CHECK Implantable Pulse Generator Visual Specialist [place] CV DEVICE CHECK Implantable Pulse Generator Type IPG CV DEVICE CHECK Implantable Pulse Generator Model Assurity MRI 2272 CV DEVICE CHECK Implantable Pulse Generator Serial Number [id number] CV DEVICE CHECK Implantable Pulse Generator Implant [...] 11:19 AM EDT) Date Time Interrogation Session [id number] CV DEVICE CHECK Type Interrogation Session Remote Scheduled CV DEVICE CHECK Implantable Pulse Generator Visual Specialist [place] CV DEVICE CHECK Implantable Pulse Generator Type IPG CV DEVICE CHECK Implantable Pulse Generator Model 2272 Assurity MRI(TM) CV DEVICE CHECK Implantable Pulse Generator Serial Number [id number] CV DEVICE CHECK Implantable Pulse Generator Implant Date [id number] CV DEVICE CHECK Battery Remaining Percentage 70.00 CV DEVICE CHECK Battery Remaining Longevity 65.0 CV DEVICE CHECK Battery Voltage 3.010 CV D EVICE CHECK Battery CRYSTAL INSPECTOR Trigger 2.600 CV DEVICE CHECK Battery Status Middle of Service CV DEVICE CHECK Joey Statistic RA Percent Paced 14.00 CV DEVICE CHECK Joey Statistic RV Percent Paced 92.00 CV DEVICE CHECK Atrial Tachy Statistic AT/AF [place] Percent 27.00 CV DEVICE CHECK Lead Channel [...] Rate Histograms reviewed Narrative Procedure Note Litzy Dwyer, CLINICAL PROGRAM DIRECTOR - 04/28/2025 IMPRESSION: Normal Remote: With Events * Not appropriaely mode switching (See presenting) Undersensing p-waves * Events or Alerts: AF / Prev Persistent/ Meds include Eliquis * Battery: Battery is at 70%, 5.42 yrs * Sensing, impedance and thresholds reviewed * Programmed parameters reviewed * Presenting rhythm reviewed * Heart Rate Histograms reviewed Litzy Dwyer CLINICAL PROGRAM DIRECTOR CV IMPLANTABLE CARDIAC DEVIC E PROCEDURES Final Result from Last 3 Months Insurance MEDICARE [facility] Care Teams Certified Professional Midwife Relationship Specialty Start Date End Date Jonathan Carter DO [address] [place] [address] [place] [address] PCP - General Internal Medicine 04/24/14
== END 2025-06-30 13:56 | disposition home or self-care (01) ==
LOC: HO.HOS 13:18
PROVIDERS: PCP Internal Medicine
DX: G56.01 Carpal tunnel syndrome, right upper limb (principal)
CPT/HCPCS: 99024

== ENCOUNTER → 2025-06-30 13:17 | Outpatient (BNVA) | payer MEDICARE, OTHER, SELFPAY | PROVIDERS: PCP Internal Medicine | DX: G56.01 Carpal tunnel syndrome, right upper limb (principal); Z98.890 Other specified postprocedural states | CPT/HCPCS: 99212 ==